=== PATIENT | female | born 1955 | race Caucasian/White ===

== ENCOUNTER 2016-06-25 09:27 | Day surgery (SDC) | payer MEDICARE ==
--- NOTE | 2016-06-23 15:34 | HP ---
DATE OF SURGERY: 06/25/2016 HISTORY OF PRESENT ILLNESS: The patient is a 61 year-old who has history of colon cancer status post resection in the past now in need of follow up colonoscopy. Colonoscopy requested per oncology. PAST MEDICAL HISTORY: Diabetes. She had colon cancer resected. She also had some liver metastasis resected in the past. PAST SURGICAL HISTORY: Partial colectomy in the past. She had 60% of her liver removed for metastasis in the past. She had left knee replacement in the past. Hysterectomy in the past. MEDICATIONS: ALLERGIES: SILK TAPE. FAMILY HISTORY: Heart disease, diabetes, cancer, hypertension. SOCIAL HISTORY: No smoking or alcohol abuse. REVIEW OF SYSTEMS: Ten systems reviewed. No chest pain or palpitations other systems negative or noncontributory as above and per admission assessment. The patient denies any bloody stools. She is tolerating diet okay. No chest pain or palpitations. PHYSICAL EXAMINATION: GENERAL: No acute distress. HEENT: Sclerae nonicteric. NECK: No JVD. CHEST: Equal excursion, nonlabored breathing. CVS: Regular rate and rhythm. ABDOMEN: Soft, nontender. No peritoneal signs. EXTREMITIES: No significant edema. NEURO: Alert, moving extremities symmetrically. No gross motor deficits noted. RECTAL: Deferred timed to endoscopy exam. IMPRESSION: History of colon cancer status post partial colectomy as well resection for liver metastasis in the past, now in need of follow up screening colonoscopy. I feel she is a candidate. Risks and benefits explained in detail including but not limited to bleeding or infection, risk of bowel injury or perforation possibly requiring open procedure, small risk of missed or nondiagnosis or incomplete exam possibly requiring barium enema, other studies or procedures, general risk of anesthesia or sedation, risk of bowel prep, postoperative nausea, vomiting or cramping but not limited to. She understands and agrees to the planned procedure and will proceed with outpatient follow up screening colonoscopy.
[~2016-06-25 09:27] MED LIST: DIPRIVAN 200 MG/20 ML IV ONE; Ephedrine Sulfate 50 MG/ML IJ ONE; Lactated Ringers 1,000 ML IV SCH; SUBLIMAZE 100 MCG/2 ML IV ONE; Versed 2 MG/2 ML Injection IV ONE
[2016-06-25] MEDS ORDERED: Lactated Ringers 1,000 ML IV ONE ×2 (09:41→11:47)
--- NOTE | 2016-06-25 13:07 | OP ---
SURGERY DATE: 06/25/16 SURGERY TIME: 1052 PREOPERATIVE DIAGNOSIS: 1. HISTORY OF COLON CANCER STATUS POST RESECTION. 2. HISTORY OF LIVER METASTASIS STATUS POST PARTIAL HEPATIC RESECTION. 3. NEED FOR FOLLOW-UP SCREENING COLONOSCOPY. POSTOPERATIVE DIAGNOSIS: 1. VERY POOR BOWEL PREP LIMITING THE EXAM. 2. DIVERTICULOSIS. 3. SMALL INTERNAL/EXTERNAL HEMORRHOIDS. 4. PATCHY AREA OF INFLAMMATION RECTUM VS PREP IRRITATION. PROCEDURE: 1. Colonoscopy to terminal ileum with cold biopsy rectal inflammation. SURGEON: Dr. Mason Rogers. ANESTHESIA: MAC. ESTIMATED BLOOD LOSS: Minimal. INDICATIONS: As noted above. Risks and benefits explained in detail, but not limited to. Consent obtained. DESCRIPTION OF PROCEDURE AND FINDINGS: The patient was taken to the OR. MAC anesthesia was introduced. Digital rectal exam revealed some internal/external hemorrhoids. Video colonoscope inserted and passed up through the poorly prepped colon up to the very tortuous sigmoid and descending colon. With external pressure, the scope was able to be passed down the transverse colon to the ileocolic anastomosis. The terminal ileum was grossly unremarkable and the connection was grossly unremarkable. There was no evidence of any recurrence of the anastomosis. Prep overall was very poor with liquidy, semi-solid, and solid stool limiting the exam for potentially small lesions. It was irrigated out as well as possible, but did limit the exam. The scope was slowly, carefully withdrawn. There were no signs of any large polyps, masses, or obstructing lesions. She did have some mild diverticulosis. She did have some small internal/external hemorrhoids. There was some patchy area of inflammation in the colon. Picture was taken. Cold biopsy was taken. The patient tolerated the procedure well. There were no immediate complications. Findings discussed with her sisters out in the waiting area.
[2016-06-25 14:11] VITALS: O2SAT 98
[2016-06-25 14:16] VITALS: BP 136/99; PULSE 95
== END 2016-06-25 12:35 | disposition home or self-care (01) ==
LOC: SDC 09:27
PROVIDERS: ATTEND Surgery
PROC: 0DBP8ZX Excision of Rectum, Via Natural or Artificial Opening Endoscopic, Diagnostic (ICD-10-PCS; principal; 2016-06-25)
DX: K57.90 Diverticulosis of intestine, part unspecified, without perforation or abscess without bleeding (principal); Z85.038 Personal history of other malignant neoplasm of large intestine; Z85.05 Personal history of malignant neoplasm of liver; K64.4 Residual hemorrhoidal skin tags; K64.8 Other hemorrhoids; Z90.49 Acquired absence of other specified parts of digestive tract; Z12.11 Encounter for screening for malignant neoplasm of colon; E11.9 Type 2 diabetes mellitus without complications
CPT/HCPCS: 00810; 36415; 82962; 88305; J1642; J2250; J2704; J3010

== ENCOUNTER 2016-10-27 20:28 | Emergency (ER) | payer MEDICARE, SELFPAY ==
--- NOTE | 2016-10-27 21:05 | ERPHSYRPT ---
- History of Present Illness Time Seen by Provider: 10/27/16 21:02 Historian: patient, family Exam Limitations: no limitations Patient Subjective Stated Complaint: PER PATIENT C/O INTERMITENT EPIGASTRIC PAIN STARTING AT 1200 TODAY Triage Nursing Assessment: AOX3, NO FEVER NOTED, SLIGHTLY HYPOTENSIVE PER PATIENT NORMAL BP 111 (teens) Physician History: 2 week hisotry of abd pain in pt who had colon resection for cancer in 2014 and last year a liver met resection for same; was OK until 2 weeks ago when pain recurred to this date worse tonight.no shortness of breath or resp symptoms; no CP, no dizziness , no vomiting but some nausea; Timing/Duration: day(s) Activities at Onset: none Quality: cramping, pressure, sharpness Abdominal Pain Onset Location: epigastric, generalized abdomen Severity of Pain-Max: moderate Severity of Pain-Current: moderate Modifying Factors: Improves With: movement Associated Symptoms: loss of appetite Previous symptoms: no prior history Allergies/Adverse Reactions: hydrocodone Adverse Reaction (Mild, Verified 08/28/16 13:07) Itching adhesive tape Adverse Reaction (Verified 08/28/16 13:07) Home Medications: Insulin Lispro [Humalog] 0 unit SQ UD PRN 10/13/13 [History] Oxybutynin Chloride Xl 5 mg [Ditropan XL 5 MG] 5 mg PO BID 10/13/13 [ History] Gabapentin 300 mg PO BID 10/25/14 [History] Venlafaxine HCl ER 75 mg [Effexor XR 75 MG] 75 mg PO DAILY 10/25/14 [ History] Insulin Glargine [Lantus Insulin] 60 unit SQ AMINSULIN 06/16/15 [History] Atorvastatin Calcium [Lipitor 40Mg] 40 mg PO DAILY 10/06/15 [History] Ascorbic Acid/Bioflavonoids [Vit C-Bioflavonoids Tab SA] 1 tablet PO DAILY 11/23 [History] L.acidoph & Paracasei,B.lactis [Probiotic] 1 tablet PO DAILY 11/24/15 [History] Fluoxetine HCl 10 mg [Prozac 10 mg] 10 mg PO DAILY 04/27/16 [History] Multivitamin [Multivitamins] 1 each PO DAILY 04/27/16 [History] Lisinopril 10 mg [Zestril 10 MG] 20 mg PO DAILY 05/28/16 [History] Cinnamon Bark [Cinnamon] 500 mg PO BID 06/21/16 [History] Docusate Sodium 100 mg [Colace 100 MG] 100 mg PO DAILY 06/21/16 [History] Iron Polysaccharide Complex [Ferrex 150] 150 mg PO BID 06/21/16 [History] Hx Tetanus, Diphtheria Vaccination/Date Given: Yes Hx Influenza Vaccination/Date Given: No Hx Pneumococcal Vaccination/Date Given: Yes - Review of Systems Constitutional: No Fever, No Chills Eyes: No Symptoms Ears, Nose, & Throat: No Symptoms Respiratory: No Cough, No Dyspnea Cardiac: No Chest Pain, No Edema, No Syncope Abdominal/Gastrointestinal: Abdominal Pain, Nausea, Appetite Changes, No Vomiting, No Diarrhea Genitourinary Symptoms: No Dysuria Musculoskeletal: No Back Pain, No Neck Pain Skin: No Rash Neurological: No Dizziness, No Focal Weakness, No Sensory Changes Psychological: No Symptoms Endocrine: No Symptoms All Other Systems: Reviewed and Negative - Past Medical History Pertinent Past Medical History: Yes Neurological History: No Pertinent History ENT History: No Pertinent History Cardiac History: Hypertension Respiratory History: Pulmonary Embolism Endocrine Medical History: Diabetes Type II Musculoskeletal History: Arthritis GI Medical History: Colorectal Cancer, Liver Cancer, Other History: No Pertinent History Psycho-Social History: No Pertinent History Female Reproductive Disorders: No Pertinent History Other Medical History: HX OF MRSA. COLON CANCER,chemo tx. liver cancer-- PARTIAL HEPATECTOMY 60 % - Past Surgical History Past Surgical History: Yes Neuro Surgical History: No Pertinent History Cardiac: No Pertinent History Respiratory: Other Gastrointestinal: Colon Resection Genitourinary: No Pertinent History Musculoskeletal: Orthopedic Surgery Female Surgical History: Hysterectomy Other Surgical History: bone removed d/t infection. antibiotic beads left lower leg. PORT PLACED. left knee replaced. PARTIAL HEPATECTOMY 60 % REMOVED 09/25/2015, cyst removed from her back - Social History Smoking Status: Never smoker Exposure to second hand smoke: No Drug Use: none Patient Lives Alone: No - Nursing Vital Signs Nursing Vital Signs: Initial Vital Signs Temperature 97.7 F Temperature Source Oral Pulse Rate 71 Respiratory Rate 16 Blood Pressure [Right Arm] 109/55 Pain Intensity 8 - Physical Exam General Appearance: no apparent distress, alert Eye Exam: PERRL/EOMI, eyes nml inspection Ears, Nose, Throat Exam: normal ENT inspection, pharynx normal, moist mucous membranes Neck Exam: normal inspection, non-tender, supple, full range of motion Respiratory Exam: normal breath sounds, lungs clear, No respiratory distress Cardiovascular Exam: regular rate/rhythm, normal heart sounds Gastrointestinal/Abdomen Exam: soft, tenderness, No mass Pelvic Exam: deferred Rectal Exam: deferred Back Exam: normal inspection, normal range of motion, No CVA tenderness, No vertebral tenderness Extremity Exam: normal inspection, normal range of motion, pelvis stable Neurologic Exam: alert, oriented x 3, cooperative, normal mood/affect, nml cerebellar function, sensation nml, No motor deficits Skin Exam: normal color, warm, dry SpO2: 98 Oxygen Delivery: Room Air - Course Nursing assessment & vital signs reviewed: Yes EKG Interpreted by Me: Sinus Rhythm, NORMAL AXIS, NORMAL INTERVALS, Non- specific ST Changes - CT Exams Abdomen/Pelvis CT Interpretation: Tele-radiologist Report, Other (some increased stranding and slightly more free fluid from last month ; otw no change.) Ordered Tests: Active Orders 24 hr Category Date Time Status Clean Catch Urine Specimen STAT Care 10/27/16 21:05 Active EKG-ER Only STAT Care 10/27/16 21:05 Active IV Insertion STAT Care 10/27/16 21:05 Active NPO (ED) STAT Care 10/27/16 21:05 Active ABDOMEN AND PELVIS W/0 CONTRAS [CT] Stat Exams 10/27/16 21:06 Taken AMYLASE Stat Lab 10/27/16 21:27 Completed CBC W DIFF Stat Lab 10/27/16 21:27 Completed CMP Stat Lab 10/27/16 21:27 Completed LIPASE Stat Lab 10/27/16 21:27 Completed Lactic Acid Stat Lab 10/27/16 21:25 Completed Occult Blood,Stool Other Stat Lab 10/27/16 22:37 Completed TROPONIN Stat Lab 10/27/16 21:27 Completed UA W/ MICROSCOPIC Stat Lab 10/27/16 22:37 Completed Medication Summary Generic Name Dose Route Start Last Admin Trade Name Freq PRN Reason Stop Dose Admin Sodium Chloride 1,000 mls @ 100 mls/hr 10/27/16 21:15 10/27/16 21:25 Sodium Chloride 0.9% 1000 Ml IV 11/26/16 21:14 100 mls/hr .Q10H DIONISIO Administration Lab/Rad Data: Laboratory Result Diagrams 10/27/16 21:27 10/27/16 21:27 Laboratory Results 10/27/16 10/27/16 10/27/16 Range/Units 22:37 22:37 21:27 WBC 3.8 L (4.0-10.5) K/mm3 RBC 4.52 (4.1-5.4) M/mm3 Hgb 12.8 (12.0-16.0) gm/dl Hct 37.8 (35-47) % MCV 83.6 (78-100) fl MCH 28.3 (26-32) pg MCHC 33.9 (32-36) g/dl RDW 13.9 (11.5-14.0) % Plt Count 60 L (150-450) K/mm3 MPV 9.0 (6-9.5) fl Gran % 67.9 H (36.0-66.0) % Lymphocytes % 19.8 L (24.0-44.0) % Monocytes % 9.9 (0.0-12.0) % Eosinophils % 2.1 (0.00-5.0) % Basophils % 0.3 (0.0-0.4) % Basophils # 0.01 (0-0.4) Sodium (136-145) mEq/L Potassium (3.5-5.1) mEq/L Chloride (98-107) mEq/L Carbon Dioxide (21-32) mEq/L Anion Gap (5-15) MEQ/L BUN (9-20) mg/dL Creatinine (0.55-1.30) mg/dl Estimated GFR ML/MIN Glucose (70-110) MG/DL Lactic Acid (0.4-2.0) Calcium (8.5-10.1) mg/dL Total Bilirubin (0.2-1.0) mg/dL AST (15-37) U/L ALT (12-78) U/L Alkaline Phosphatase (46-116) U/L Troponin I (0.000-0.056) ng/ml Serum Total Protein (6.4-8.2) gm/dL Albumin (3.4-5.0) g/dL Amylase (25-115) U/L Lipase (73-393) U/L Ur Collection Type CLEAN CATCH Urine Color YELLOW (YELLOW) Urine Appearance CLEAR (CLEAR) Urine pH 5.5 (5-6) Ur Specific [place] 1.015 (1.005-1.025) Urine Protein NEGATIVE (Negative) Urine Glucose (UA) NEGATIVE (NEGATIVE) mg/dL Urine Ketones NEGATIVE (NEGATIVE) Urine Nitrite NEGATIVE (NEGATIVE) Urine Bilirubin NEGATIVE (NEGATIVE) Urine Urobilinogen 0.2 (0-1) mg/dL Urine WBC (Auto) TRACE (NEGATIVE) Urine RBC (Auto) TRACE-INTACT (0-5) Wilder/ul Urine Microscopic RBC 2-5 (0-2) /HPF Urine Microscopic WBC 2-5 (0-5) /HPF Ur Epithelial Cells MODERATE (FEW) /HPF Urine Bacteria FEW (NEGATIVE) /HPF Urine Mucus SLIGHT (NEGATIVE) /HPF Stool Occult Blood NEGATIVE (Negative) Specimen Received 10/27/16222910/27/16 10/27/16 Range/Units 21:27 21:25 WBC (4.0-10.5) K/mm3 RBC (4.1-5.4) M/mm3 Hgb (12.0-16.0) gm/dl Hct (35-47) % MCV (78-100) fl MCH (26-32) pg MCHC (32-36) g/dl RDW (11.5-14.0) % Plt Count (150-450) K/mm3 MPV (6-9.5) fl Gran % (36.0-66.0) % Lymphocytes % (24.0-44.0) % Monocytes % (0.0-12.0) % Eosinophils % (0.00-5.0) % Basophils % (0.0-0.4) % Basophils # (0-0.4) Sodium 138 (136-145) mEq/L Potassium 4.0 (3.5-5.1) mEq/L Chloride 105 (98-107) mEq/L Carbon Dioxide 26.8 (21-32) mEq/L Anion Gap 10.4 (5-15) MEQ/L BUN 15 (9-20) mg/dL Creatinine 0.78 (0.55-1.30) mg/dl Estimated GFR > 60 ML/MIN Glucose 175 H (70-110) MG/DL Lactic Acid 1.2 (0.4-2.0) Calcium 9.2 (8.5-10.1) mg/dL Total Bilirubin 0.7 (0.2-1.0) mg/dL AST 29 (15-37) U/L ALT 31 (12-78) U/L Alkaline Phosphatase 106 (46-116) U/L Troponin I < 0.017 (0.000-0.056) ng/ml Serum Total Protein 7.2 (6.4-8.2) gm/dL Albumin 3.4 (3.4-5.0) g/dL Amylase 25 (25-115) U/L Lipase 134 (73-393) U/L Ur Collection Type Urine Color (YELLOW) Urine Appearance (CLEAR) Urine pH (5-6) Ur Specific [place] (1.005-1.025) Urine Protein (Negative) Urine Glucose (UA) (NEGATIVE) mg/dL Urine Ketones (NEGATIVE) Urine Nitrite (NEGATIVE) Urine Bilirubin (NEGATIVE) Urine Urobilinogen (0-1) mg/dL Urine WBC (Auto) (NEGATIVE) Urine RBC (Auto) (0-5) Wilder/ul Urine Microscopic RBC (0-2) /HPF Urine Microscopic WBC (0-5) /HPF Ur Epithelial Cells (FEW) /HPF Urine Bacteria (NEGATIVE) /HPF Urine Mucus (NEGATIVE) /HPF Stool Occult Blood (Negative) Specimen Received - Progress Progress: improved, re-examined Progress Note: 10/27/16 23:39 pt is feeling better now - discussed findings that are not specific , and that undetected pathology could be evolving; pt prefers DC to admission or furhter w/ u in ER at this time and will return if symptoms recur; would like something fo r nausea and will see her treating drs saturday for further w/u ; 10/27/16 23:41 pt has capacity to make this choice 10/27/16 23:48 BP increased to 100s, with normal HR. Counseled pt/family regarding: lab results, diagnosis, need for follow-up, rad results - Departure Time of Disposition: 23:42 Departure Disposition: Home Clinical Impression: Colon adenocarcinoma, Abdominal pain, right lung nodule, without symptoms Condition: Good Critical Care Time: No Instructions: Abdominal Pain-Adult Additional Instructions: We have not identified a precise cause for your abdominal pain, but undetected problems could be evolving; THe CT findings may represent early problems. It is important therefore for you to see your for further evaluation. THere is also a lung nodule on right from in September to followup; return meantime if not improving, vomiting fever, or other concerns; Prescriptions: Ondansetron [Ondansetron Odt] 4 mg PO Q6H PRN PRN #7 tab.rapdis PRN Reason: Nausea
[2016-10-27] MEDS ORDERED: Sodium Chloride 0.9% 1000 ML 1,000 ML IV SCH (21:15)
[2016-10-27] MEDS ORDERED: Sodium Chloride 0.9% 1000 ML 1,000 ML ONE (21:24)
[2016-10-27 21:35] LABS: BASOPHIL % 0.3 % (0.0-0.4); Eosinophil % 2.1 % (0.00-5.0); Granulocytes % 67.9 % (36.0-66.0); Lymphocytes % 19.8 % (24.0-44.0); Mean Cell Volume 83.6 fl (78-100); Mean Corpuscular Hemoglobin 28.3 pg (26-32); Monocytes % 9.9 % (0.0-12.0); Platelet Count 60 K/mm3 (150-450); Red Blood Count 4.52 M/mm3 (4.1-5.4); Red Cell Distribution Width 13.9 % (11.5-14.0); White Blood Count 3.8 K/mm3 (4.0-10.5)
[2016-10-27 21:52] LABS: ALBUMIN 3.4 g/dL (3.4-5.0); ALKALINE PHOSPHATASE 106 U/L (46-116); ANION GAP 10.4 MEQ/L (5-15); BILIRUBIN,TOTAL 0.7 mg/dL (0.2-1.0); BLOOD UREA NITROGEN 15 mg/dL (9-20); CHLORIDE 105 mEq/L (98-107); Carbon Dioxide 26.8 mEq/L (21-32); Glucose 175 MG/DL (70-110); LIPASE 134 U/L (73-393); SGOT/AST 29 U/L (15-37); SGPT/ALT 31 U/L (12-78); SODIUM 138 mEq/L (136-145); Total Protein 7.2 gm/dL (6.4-8.2)
[2016-10-27 21:53] LABS: TROPONIN < 0.017 ng/ml (0.000-0.056)
[2016-10-27 23:05] LABS: Bacteria FEW /HPF (NEGATIVE); COMPLETE URINE MICROSCOPIC? YES; Collection Type CLEAN CATCH; Epithelial Cells MODERATE /HPF (FEW); Mucus SLIGHT /HPF (NEGATIVE); Ph 5.5 (5-6)
[2016-10-28 00:09] VITALS: BP 106/64; PULSE 74; O2SAT 94
--- NOTE | 2016-10-28 09:32 | XRAY ---
Indication: Upper abdominal pain. History colon cancer. Multiple contiguous axial images obtained through the abdomen and pelvis without contrast as ordered. Comparison: May 02, 2016. Lung bases demonstrate 2 stable noncalcified micronodules in the right lower lobe. No infiltrates, consolidation, or effusion. Heart is not enlarged. Again postsurgical changes in the right upper quadrant related to partial resection of the right lobe liver and cholecystectomy with continued diminished fluid. Mild mesenteric stranding/congestion with minimally increasing small pelvic free fluid. No walled off fluid collection or free air. Uterus again surgically absent. Again splenomegaly today measuring 15.7 cm in greatest axial dimension. Noncontrasted stomach and bowel loops appear nonobstructed. There is increasing moderate diffuse colonic fecal debris. Stable umbilical hernia again with nonobstructing nonincarcerated small bowel herniation. Also stable left renal cyst. Previous lower anterior abdominal wall subcutaneous masslike opacities continue to appear smaller. Stable mild aortoiliac calcifications without AAA. Remaining liver, pancreas, spleen, adrenal glands, kidneys, ureters, and bladder appear unremarkable for noncontrast exam. Osseous structures again intact with degenerative changes through the spine/both hips and scoliosis. Impression: 1. Increasing fecal stasis without obstruction. 2. Mesenteric stranding/congestion with increasing small pelvic free fluid. 3. Again splenomegaly. 4. Stable right upper quadrant postsurgical changes related to partial resection of the liver and cholecystectomy. 5. Stable umbilical hernia without incarceration/obstruction and left renal cyst. 6. Stable right lower lobe indeterminate pulmonary micronodules. CT DI 28.13
== END 2016-10-28 00:04 | disposition home or self-care (01) ==
LOC: ED 20:28
DX: C18.9 Malignant neoplasm of colon, unspecified (principal); R10.9 Unspecified abdominal pain; R91.1 Solitary pulmonary nodule; R10.13 Epigastric pain; Z79.899 Other long term (current) drug therapy; R11.0 Nausea; I10 Essential (primary) hypertension; E11.9 Type 2 diabetes mellitus without complications; Z86.711 Personal history of pulmonary embolism
CPT/HCPCS: 36000; 36415; 74176; 80053; 81000; 82150; 82272; 83605; 83690; 84484; 85025; 93005; 96360; 96361; 99284; J1642

== ENCOUNTER 2016-11-28 11:43 | Observation (INO) | payer MEDICARE, SELFPAY ==
[2016-11-28] MEDS ORDERED: Zofran 4 MG/2 ML VIAL IV PRN (11:55)
[2016-11-28] MEDS ORDERED: MORPHINE SULFATE 4 MG INJ IV PRN (11:56)
[2016-11-28] MEDS ORDERED: Sodium Chloride 0.9% 500 ML 500 ML IV SCH (12:00)
[2016-11-28] MEDS: Sodium Chloride 0.9% 1000 ML 1,000 ML IV SCH (12:33)
[2016-11-28 12:49] LABS: Mean Cell Volume 83.4 fl (78-100); Mean Corpuscular Hemoglobin 29.1 pg (26-32); Mean Platelet Volume 9.6 fl (6-9.5); Platelet Count 58 K/mm3 (150-450); Red Blood Count 5.01 M/mm3 (4.1-5.4); Red Cell Distribution Width 14.8 % (11.5-14.0); White Blood Count 4.1 K/mm3 (4.0-10.5)
[2016-11-28] MEDS: Zestril 20 MG PO SCH (13:09)
[2016-11-28 13:20] LABS: ALBUMIN 3.6 g/dL (3.4-5.0); ALKALINE PHOSPHATASE 115 U/L (46-116); BLOOD UREA NITROGEN 15 mg/dL (9-20); CHLORIDE 102 mEq/L (98-107); Carbon Dioxide 23.1 mEq/L (21-32); Glucose 157 MG/DL (70-110); Potassium 3.8 mEq/L (3.5-5.1); SGOT/AST 72 U/L (15-37); SGPT/ALT 47 U/L (12-78); SODIUM 135 mEq/L (136-145); Total Protein 7.9 gm/dL (6.4-8.2)
[2016-11-28 14:53] LABS: Eosinophil 1 % (0.00-3.0); Total Cells Counted 100
[2016-11-28 14:54] LABS: Platelet Estimate DECREASED (NORMAL)
--- NOTE | 2016-11-28 16:16 | XRAY ---
Exam: CT of the abdomen and pelvis with IV contrast from 11/28/2016. CTDI: 23.68 Comparison: CT of the abdomen and pelvis without IV contrast from 10/27/[address] of the abdomen and pelvis with IV contrast from 05/02/2016 and 07/08/2015. Indication: Diarrhea, dehydration, history of colon cancer. The patient has a history of prior colon surgery as well as cholecystectomy and hysterectomy. Technique: Post-IV contrast axial images were obtained through the abdomen and pelvis during automated injection of 80 cc of Isovue 370 IV contrast material. Oral contrast was given as well. Reconstructed coronal and sagittal images were created and reviewed. Findings: The lung bases reveal a stable 5.5 mm nodule on axial image #1 at the posterior right lung base as compared to a CT of the chest from 09/17/2016. Continued monitoring is warranted. The remainder of the visualized lung bases appears clear. The patient is status post partial posterior right lobe liver resection. Numerous surgical clips are seen. The remainder of the liver appears unremarkable. The gallbladder is surgically absent. The spleen is enlarged measuring 18.5 cm in greatest diameter on sagittal image #133. No focal splenic mass is seen. This appears similar to recent studies. The pancreas and left adrenal gland appear unremarkable. The right adrenal gland is not well seen. Both kidneys function and reveal no hydronephrosis or definite renal calculi. Within the posterior aspect of the upper pole of the left kidney I see a 2.7 cm x 2.5 cm lesion which measures an average of +59 Hounsfield units on the immediate post IV contrast study and +61 Hounsfield units on the delayed images. If this represents a cyst, it contains cellular debris or proteinaceous material within it. This appears of unchanged size. Correlate clinically as to whether further investigation with a renal ultrasound with attention to the posterior aspect of the upper pole of the left kidney is needed. The patient is apparently partial right-sided colon resection. Surgical suture material is seen at the anastomosis. I see no adjacent mass or bowel wall thickening. There does appear to be some scattered fluid within distal small bowel and colon which can be seen with a diarrheal state. In addition, there is a nonobstructing and nonincarcerated umbilical hernia containing some nondilated opacified small bowel within its representing no change. No other ventral abdominal wall hernia is seen. There is no free intraperitoneal air. Some atherosclerotic vascular calcification is seen within the abdominal aorta and iliac arteries. No abdominal aortic aneurysm or abnormal retroperitoneal lymphadenopathy is seen. The pelvis reveals a surgically absent uterus. The urinary bladder is almost empty. No enlarged pelvic lymph nodes or free fluid within the pelvis is seen. No acute fracture or suspicious skeletal lesions are seen. The skeleton reveals a mild mid lumbar rotary levoscoliosis. Mild to moderate osteoarthritis of the right hip and minimal osteoarthritic change of the left hip are seen. Mild degenerative disc disease is seen at L2-L3. Prominent anterior lateral vertebral endplate spurs are seen throughout the visualized thoracolumbar spine. Impression: 1. I note scattered fluid density throughout the colonic bowel lumen without concomitant bowel wall thickening. This is consistent with a diarrheal state. I see no findings to suggest acute bowel obstruction. There is no free air. 2. The patient is status post partial right colon resection. The anastomotic site appears unremarkable. I also see evidence of prior partial posterior right hepatic lobe resection. No focal liver lesion is seen. 3. There is a stable 2.7 cm x 2.5 cm lesion at the posterior aspect of the upper pole of the left kidney. This has a somewhat high attenuation value to represent a simple cyst, although it could represent a cyst with some proteinaceous material or blood products within it. It has not changed in size. Consider the need for a focused renal ultrasound with attention to this site. 4. There is moderate splenomegaly representing no significant change. 5. Nonobstructing and nonincarcerated umbilical hernia containing nondilated opacified small bowel loops. This is unchanged. No free air or free fluid is seen. 6. There is a stable 5.5 mm soft tissue lung nodule at the posterior aspect of the right lower lobe on axial image #1 which is unchanged. Continued monitoring is recommended. 7. Both the gallbladder and uterus are surgically absent. 8. Skeletal findings, as discussed above.
[2016-11-28] MEDS: NovoLOG Insulin SQ PRN (17:09)
[2016-11-28] MEDS: ZOCOR 20MG PO SCH (21:57)
[2016-11-28] MEDS: Ditropan XL 5 MG PO SCH (21:57)
[2016-11-28] MEDS: NEURONTIN 300 MG PO SCH (21:57)
[2016-11-29] MEDS ORDERED: xanAX 0.5 MG PO PRN (07:37)
--- NOTE | 2016-11-29 07:40 | PCM.NOTE ---
Date and Time: 11/29/16 0738 Subjective Assessment: patient still with multiple loose stools overnight, having low abdominal pain/ cramping but not severe. tolerating po intake Objective Exam General Appearance: no apparent distress, alert, obese Respiratory Exam: normal breath sounds, lungs clear, No respiratory distress Cardiovascular Exam: regular rate/rhythm, normal heart sounds Gastrointestinal/Abdomen Exam: tenderness, No guarding, No rebound Extremity Exam: normal inspection, normal range of motion OBJECTIVE DATA Vital Signs: Vital Signs - 24 hr Temp Pulse Resp BP Pulse Ox 11/29/16 07:24 98.6 F 86 18 165/67 97 11/29/16 03:56 98.1 F 82 19 146/67 97 11/28/16 23:54 97.8 F 81 18 156/70 99 11/28/16 19:55 97.9 F 83 19 124/58 97 11/28/16 16:00 98.1 F 103 H 20 186/80 96 11/28/16 12:13 98.9 F 94 H 20 145/70 97 Pain Assessment - Last Documented Pain Intensity 0 Pain Scale Used 0-10 Pain Scale Intake and Output: Intake & Output 11/26/16 11/27/16 11/28/16 11/29/16 11:59 11:59 11:59 11:59 Intake Total 2083 Output Total 300 Balance 1783 Weight 114.124 kg Lab Results: Accuchecks Date 11/28/16 Date 11/28/16 Time 22:00 Time 17:09 Accucheck Value: 183 Accucheck Value: 201 Lab Results-Last 24 Hours 11/28/16 11/28/16 11/28/16 Range/Units 12:46 12:46 14:30 WBC 4.1 (4.0-10.5) K/mm3 RBC 5.01 (4.1-5.4) M/mm3 Hgb 14.6 (12.0-16.0) gm/dl Hct 41.8 (35-47) % MCV 83.4 (78-100) fl MCH 29.1 (26-32) pg MCHC 34.9 (32-36) g/dl RDW 14.8 H (11.5-14.0) % Plt Count 58 L (150-450) K/mm3 MPV 9.6 H (6-9.5) fl Segmented Neutrophils 79 H (36.0-66.0) % Lymphocytes (Manual) 10 L (24-44) % Monocytes (Manual) 10 (0.0-12.0) % Eosinophils (Manual) 1 (0.00-3.0) % Differential Comment NORMAL Platelet Estimate DECREASED (NORMAL) Sodium 135 L (136-145) mEq/L Potassium 3.8 (3.5-5.1) mEq/L Chloride 102 (98-107) mEq/L Carbon Dioxide 23.1 (21-32) mEq/L Anion Gap 14.0 (5-15) MEQ/L BUN 15 (9-20) mg/dL Creatinine 0.82 (0.55-1.30) mg/dl Estimated GFR > 60 ML/MIN Glucose 157 H (70-110) MG/DL Calcium 9.3 (8.5-10.1) mg/dL Total Bilirubin 1.30 H (0.2-1.0) mg/dL AST 72 H (15-37) U/L ALT 47 (12-78) U/L Alkaline Phosphatase 115 (46-116) U/L Serum Total Protein 7.9 (6.4-8.2) gm/dL Albumin 3.6 (3.4-5.0) g/dL Prealbumin 14.3 L (18.0-35.7) mg/dL TSH 3rd Generation 3.794 H (0.358-3.740) mIU/L Stl C. diff Tox B Gene NEGATIVE (NEGATIVE) C.difficile [id number] PRESUMPTIVE NEGATIVE (NEGATIVE) Radiology Exams: Radiology Procedures Category Date Time Status ABDOMEN AND PELVIS W CONTRAST [CT] Routine Exams 11/28/16 Completed Assessment/Plan (1) Diarrhea Current Visit: No Status: Acute Assessment & Plan: add po levaquin for possible colitis with tenderness, no obvious etiology on ct scan Code(s): R19.7 - DIARRHEA, UNSPECIFIED (2) Dehydration Current Visit: No Status: Acute Assessment & Plan: rehydrating with IV fluids Code(s): E86.0 - DEHYDRATION
[2016-11-29] MEDS: Effexor XR 75 MG PO SCH (09:26)
[2016-11-29] MEDS: Ditropan XL 5 MG PO SCH ×2 (09:26→21:36)
[2016-11-29] MEDS: Zestril 20 MG PO SCH (09:27)
[2016-11-29] MEDS: Levofloxacin 500 MG Tablet PO SCH (09:27)
[2016-11-29] MEDS: NEURONTIN 300 MG PO SCH ×2 (09:27→21:36)
[2016-11-29] MEDS: PROZAC 10 MG PO SCH (09:27)
[2016-11-29] MEDS: Sodium Chloride 0.9% 1000 ML 1,000 ML IV SCH ×2 (09:34→19:23)
[2016-11-29] MEDS ORDERED: LIPITOR 40MG PO SCH (10:00)
[2016-11-29] MEDS ORDERED: PREVNAR 13 SYRINGE IM ONE (10:00)
[2016-11-29] MEDS: NovoLOG Insulin SQ PRN (11:37)
[2016-11-29 17:06] LABS: Giardia Antigen EIA Negative (Negative)
[2016-11-29] MEDS: ZOCOR 20MG PO SCH (21:36)
[2016-11-30] MEDS: Sodium Chloride 0.9% 1000 ML 1,000 ML IV SCH ×2 (05:16→08:13)
[2016-11-30 05:45] LABS: Mean Cell Volume 84.9 fl (78-100); Mean Platelet Volume 9.5 fl (6-9.5); Platelet Count 49 K/mm3 (150-450); Red Blood Count 4.03 M/mm3 (4.1-5.4); Red Cell Distribution Width 14.5 % (11.5-14.0); White Blood Count 2.4 K/mm3 (4.0-10.5)
[2016-11-30 05:58] LABS: Mean Corpuscular Hemoglobin 28.7 pg (26-32)
[2016-11-30 06:17] LABS: ALBUMIN 2.6 g/dL (3.4-5.0); ALKALINE PHOSPHATASE 75 U/L (46-116); ANION GAP 12.2 MEQ/L (5-15); BLOOD UREA NITROGEN 11 mg/dL (9-20); CHLORIDE 109 mEq/L (98-107); Carbon Dioxide 23.8 mEq/L (21-32); Glucose 207 MG/DL (70-110); Potassium 3.8 mEq/L (3.5-5.1); SGOT/AST 37 U/L (15-37); SGPT/ALT 32 U/L (12-78); SODIUM 141 mEq/L (136-145); Total Protein 6.1 gm/dL (6.4-8.2)
[2016-11-30 07:45] VITALS: BP 148/68; PULSE 74; O2SAT 96
--- NOTE | 2016-11-30 07:50 | PCM.DS ---
Discharge Summary Date of Admission: 11/28/16 11:43 Admitting Physician: PEARL RANGEL Primary Care Provider: PEARL RANGEL Allergies Allergies hydrocodone Adverse Reaction (Mild, Verified 11/28/16 12:53) Itching adhesive tape Adverse Reaction (Verified 11/28/16 12:53) Hospital Summary - Hospital Course Hospital Course: patient was admitted with diarrhea and dehydration, hx of right partial colon resection for colon cancer. ct scan showed nothing acute, she was hydrated and diarrhea has resolved. she is tolerating a regular diet with no complaints - Vitals & Intake/Output Vital Signs: Vital Signs Temperature 97.8 F 11/30/16 07:43 Pulse Rate 74 11/30/16 07:43 Respiratory Rate 18 11/30/16 07:43 Blood Pressure 148/68 11/30/16 07:43 O2 Sat by Pulse Oximetry 96 11/30/16 07:43 Intake & Output: Intake & Output 11/27/16 11/28/16 11/29/16 11/30/16 11:59 11:59 11:59 11:59 Intake Total 2323 4189 Output Total 300 Balance 2022 4189 Weight 114.124 kg 120.746 kg - Lab Result Diagrams: 11/30/16 05:25 11/30/16 05:25 Lab Results-Last 24 Hrs: Accuchecks Date 11/30/16 Date 11/29/16 Date 11/29/16 Date 11/29/16 Time 07:34 Time 22:00 Time 16:30 Time 11:37 Accucheck Value: 187 Accucheck Value: 188 Accucheck Value: 179 Accucheck Value: 302 Lab Results-Last 24 Hours 11/28/16 11/30/16 11/30/16 Range/Units 14:30 05:25 05:25 WBC 2.4 L (4.0-10.5) K/mm3 RBC 4.03 L (4.1-5.4) M/mm3 Hgb 11.6 L (12.0-16.0) gm/dl Hct 34.2 L (35-47) % MCV 84.9 (78-100) fl MCH 28.7 (26-32) pg MCHC 33.9 (32-36) g/dl RDW 14.5 H (11.5-14.0) % Plt Count 49 L (150-450) K/mm3 MPV 9.5 (6-9.5) fl Sodium 141 (136-145) mEq/L Potassium 3.8 (3.5-5.1) mEq/L Chloride 109 H (98-107) mEq/L Carbon Dioxide 23.8 (21-32) mEq/L Anion Gap 12.2 (5-15) MEQ/L BUN 11 (9-20) mg/dL Creatinine 0.64 (0.55-1.30) mg/dl Estimated GFR > 60 ML/MIN Glucose 207 H (70-110) MG/DL Calcium 8.3 L (8.5-10.1) mg/dL Total Bilirubin 0.50 (0.2-1.0) mg/dL AST 37 (15-37) U/L ALT 32 (12-78) U/L Alkaline Phosphatase 75 (46-116) U/L Serum Total Protein 6.1 L (6.4-8.2) gm/dL Albumin 2.6 L (3.4-5.0) g/dL Cryptosporidium Ag Negative (Negative) Giardia Antigen Negative (Negative) O & P Source Feces Slides for Path Review Micro Results-Entire Visit: Accuchecks Date 11/30/16 Date 11/29/16 Date 11/29/16 Date 11/29/16 Time 07:34 Time 22:00 Time 16:30 Time 11:37 Accucheck Value: 187 Accucheck Value: 188 Accucheck Value: 179 Accucheck Value: 302 Discharge Exam General Appearance: no apparent distress, alert Skin Exam: normal color, warm, dry Respiratory Exam: normal breath sounds, lungs clear, No respiratory distress Cardiovascular Exam: regular rate/rhythm, normal heart sounds Gastrointestinal/Abdomen Exam: soft, No tenderness, No mass Final Diagnosis/Problem List - Final Discharge Diagnosis/Problem (1) Diarrhea Current Visit: No Status: Acute (2) Dehydration Current Visit: No Status: Acute - Discharge Disposition: Home, Self-Care Condition: Stable Prescriptions: New Alprazolam [Xanax] 0.5 mg PO DAILY #30 tablet Continue Oxybutynin Chloride Xl 5 mg [Ditropan XL 5 MG] 5 mg PO BID Venlafaxine HCl ER 75 mg [Effexor XR 75 MG] 75 mg PO DAILY Gabapentin 300 mg PO BID Insulin Glargine [Lantus Insulin] 52 unit SQ AMINSULIN Atorvastatin Calcium [Lipitor 40Mg] 40 mg PO DAILY L.acidoph & Paracasei,B.lactis [Probiotic] 1 tablet PO DAILY Multivitamin [Multivitamins] 1 each PO DAILY Fluoxetine HCl 10 mg [Prozac 10 mg] 10 mg PO DAILY Lisinopril 10 mg [Zestril 10 MG] 20 mg PO DAILY Iron Polysaccharide Complex [Ferrex 150] 150 mg PO BID Docusate Sodium 100 mg [Colace 100 MG] 100 mg PO DAILY Cinnamon Bark [Cinnamon] 500 mg PO BID Ascorbate Calcium [Vitamin C] 500 mg PO DAILY Changed Insulin Lispro [Humalog] 1 unit SQ UD PRN #2 vial PRN Reason: sliding scale Follow up with: PEARL RANGEL MD [Primary Care Provider] - 1 Week Forms: Patient Portal Information
[2016-11-30] MEDS: Ditropan XL 5 MG PO SCH (08:14)
[2016-11-30] MEDS: Zestril 20 MG PO SCH (08:14)
[2016-11-30] MEDS: Effexor XR 75 MG PO SCH (08:14)
[2016-11-30] MEDS: PROZAC 10 MG PO SCH (08:14)
[2016-11-30] MEDS: NEURONTIN 300 MG PO SCH (08:14)
[2016-11-30] MEDS: Levofloxacin 500 MG Tablet PO SCH (08:14)
== END 2016-11-30 10:15 | disposition home or self-care (01) ==
LOC: MED SURG 11:43
PROVIDERS: ADMIT Family Medicine; ATTEND Family Medicine
DX: R19.7 Diarrhea, unspecified (principal); E86.0 Dehydration; Z79.899 Other long term (current) drug therapy
CPT/HCPCS: 36415; 74177; 80053; 82962; 84134; 84443; 85025; 85027; 87045; 87046; 87177; 87209; 87335; 87493; 90670; G0009; G0378; J1642; J2405; A9270-GY

== ENCOUNTER 2017-07-22 16:05 | Observation (INO) | payer MEDICARE ==
--- NOTE | 2017-07-22 17:00 | ERPHSYRPT ---
- History of Present Illness Source: patient, family Exam Limitations: no limitations Patient Subjective Stated Complaint: pt co abd pain and diarrhea x2 days; abd pain has been intermittentx1 week; family states pt has been sleeping more than normal (approx 20 hours per day); pt also co sore throat x1 month. Triage Nursing Assessment: pt assisted to room per w/c; skin p,w,d; pt able to ambulate from chair to bed with minimal assist x1; no obvious distress noted; mild tenderness with palpation of mid to lower abdomen, non radiating; pt denies any n/v. Timing/Duration: week(s) (1), intermittent Severity: moderate Modifying Factors: Improves With: nothing Associated Symptoms: nausea, abdominal pain, weakness Hx Tetanus, Diphtheria Vaccination/Date Given: Yes Hx Influenza Vaccination/Date Given: No Hx Pneumococcal Vaccination/Date Given: Yes (2016) Immunizations Up to Date: No <ANTWAN IRAHETA - Last Filed: 07/22/17 19:20> <ANTWAN MANCIA - Last Filed: 07/22/17 22:20> - History of Present Illness Time Seen by Provider: 07/22/17 16:50 Physician History: The patient is a 62-year-old female with family with multiple complaints. She' s had intermittent abdominal pain for one week. She's been sleeping more than normal. She's had nausea and diarrhea for about 5 days. The diarrhea today was 7 loose stools. She's had a sore throat for a month. She thinks she may be dehydrated. She's had a recent past medical history significant for cancer. She is currently taking chemotherapy for lung cancer in both lungs. A few years ago she had colon cancer with apparent metastases to the liver. She had a partial colectomy and lobectomy of the liver. Her last chemotherapy for lung cancer was one week ago. In addition her past medical history is significant for anxiety, high cholesterol, and hypertension. (ANTWAN IRAHETA) Allergies/Adverse Reactions: hydrocodone Adverse Reaction (Mild, Verified 07/22/17 16:37) Itching adhesive tape Adverse Reaction (Verified 07/22/17 16:37) Home Medications: Oxybutynin Chloride Xl 5 mg [Ditropan XL 5 MG] 5 mg PO BID 10/13/13 [ History] Gabapentin 300 mg PO BID 10/25/14 [History] Venlafaxine HCl ER 75 mg [Effexor XR 75 MG] 75 mg PO DAILY 10/25/14 [ History] Atorvastatin Calcium [Lipitor 40Mg] 40 mg PO DAILY 10/06/15 [History] L.acidoph,Paracasei, B.lactis [Probiotic] 1 tablet PO DAILY 11/24/15 [History] Fluoxetine HCl 10 mg [Prozac 10 mg] 10 mg PO DAILY 04/27/16 [History] Multivitamin [Multivitamins] 1 each PO DAILY 04/27/16 [History] Lisinopril 10 mg [Zestril 10 MG] 20 mg PO DAILY 05/28/16 [History] Ascorbate Calcium [Vitamin C] 500 mg PO DAILY 11/28/16 [History] Insulin NPH Hum/Reg Insulin Hm [Relion Novolin 70-30 Vial] 75 units SQ BID 07/22 [History] - Review of Systems Constitutional: Weakness Eyes: No Symptoms Ears, Nose, & Throat: Throat Pain Respiratory: No Cough, No Dyspnea Cardiac: No Chest Pain, No Edema, No Syncope Abdominal/Gastrointestinal: Abdominal Pain, Nausea, Diarrhea, No Vomiting Genitourinary Symptoms: No Dysuria Musculoskeletal: No Back Pain, No Neck Pain Skin: No Rash Neurological: No Dizziness, No Focal Weakness, No Sensory Changes Psychological: No Symptoms Endocrine: No Symptoms Hematologic/Lymphatic: No Symptoms Immunological/Allergic: No Symptoms All Other Systems: Reviewed and Negative <ANTWAN IRAHTEA - Last Filed: 07/22/17 19:20> - Past Medical History Pertinent Past Medical History: Yes Neurological History: No Pertinent History ENT History: No Pertinent History Cardiac History: No Pertinent History Respiratory History: Lung Cancer Endocrine Medical History: Liver Disease Musculoskeletal History: Other GI Medical History: Colorectal Cancer History: No Pertinent History Psycho-Social History: No Pertinent History Female Reproductive Disorders: No Pertinent History Other Medical History: HX OF MRSA. COLON CANCER,chemo tx. liver cancer-- PARTIAL HEPATECTOMY 60 % - Past Surgical History Past Surgical History: Yes Neuro Surgical History: No Pertinent History Cardiac: No Pertinent History Respiratory: No Pertinent History Gastrointestinal: No Pertinent History, Bowel Surgery, Colon Resection Genitourinary: No Pertinent History Musculoskeletal: Joint Replacement, Orthopedic Surgery Female Surgical History: Hysterectomy Other Surgical History: bone removed d/t infection. antibiotic beads left lower leg. PORT PLACED. left knee replaced. PARTIAL HEPATECTOMY 60 % REMOVED 09/25/2015, cyst removed from her back - Social History Smoking Status: Never smoker Exposure to second hand smoke: No Drug Use: none Patient Lives Alone: No - Female History Hx Now: No <ANTWAN IRAHETA - Last Filed: 07/22/17 19:20> - Physical Exam General Appearance: no apparent distress, alert Eye Exam: PERRL/EOMI, eyes nml inspection Ears, Nose, Throat Exam: normal ENT inspection, TMs normal, pharynx normal, moist mucous membranes Neck Exam: normal inspection, non-tender, supple, full range of motion Respiratory Exam: normal breath sounds, lungs clear, No respiratory distress Cardiovascular Exam: regular rate/rhythm, normal heart sounds, normal peripheral pulses Gastrointestinal/Abdomen Exam: soft, normal bowel sounds, No tenderness, No mass Pelvic Exam: not done Rectal Exam: not done Back Exam: normal inspection, normal range of motion, No CVA tenderness, No vertebral tenderness Extremity Exam: normal inspection Neurologic Exam: alert, oriented x 3, cooperative, normal mood/affect, nml cerebellar function, nml station & gait, sensation nml, No motor deficits Skin Exam: normal color, warm, dry, No rash Lymphatic Exam: No adenopathy SpO2 Interpretation: normal SpO2: 97 Oxygen Delivery: Room Air <ANTWAN IRAHETA - Last Filed: 07/22/17 19:20> - Nursing Vital Signs Nursing Vital Signs: Initial Vital Signs Temperature 97.5 F 07/22/17 16:16 Pulse Rate 70 07/22/17 16:16 Respiratory Rate 16 07/22/17 16:16 Blood Pressure 165/69 07/22/17 16:16 O2 Sat by Pulse Oximetry 97 07/22/17 16:16 Pain Scale Pain Intensity 0 - Course EKG Interpreted by Me: RATE, Sinus Rhythm, NORMAL AXIS, NORMAL INTERVALS, NORMAL QRS, NORMAL ST-T, Other (no change comp EKG 10/27/16) <ANTWAN IRAHETA - Last Filed: 07/22/17 19:20> - CT Exams Abdomen/Pelvis CT Interpretation: Discussed w/radiologist (COMPARED TO 05/31/17: NEW MILD MESENTERIC STRANDING EITHER RELATED TO CHEMO, CONGESTION OR MESENTERIC ADENITIS. NO FREE FLUID/AIR. STABLE POST OP CHANGES, SPLENOMEGALY, LEFT RENAL CYST, UMBILICAL HERNIA W/O OBSTRUCTION & BIBASILAR METASTATIC NODULES. PREVIOUS HEPATIC LESION NOT SEEN ON THIS NONCONTRAST EXAM.) <ANTWAN MANCIA - Last Filed: 07/22/17 22:20> Ordered Tests: Active Orders 24 hr Category Date Time Status Accucheck STAT Care 07/22/17 20:21 Active EKG-ER Only STAT Care 07/22/17 17:05 Active IV Insertion STAT Care 07/22/17 17:05 Active ABDOMEN AND PELVIS W/0 CONTRAS [CT] Stat Exams 07/22/17 17:46 Taken CHEST 2 VIEWS (PA AND LAT) Stat Exams 07/22/17 22:16 Taken AMYLASE Stat Lab 07/22/17 17:39 Completed CBC W DIFF Stat Lab 07/22/17 17:39 Completed CMP Stat Lab 07/22/17 17:39 Completed LIPASE Stat Lab 07/22/17 17:39 Completed Lactic Acid Stat Lab 07/22/17 17:05 Completed TROPONIN Q3H Lab 07/22/17 17:39 Completed TROPONIN Q3H Lab 07/22/17 20:15 Completed TROPONIN Q3H Lab 07/22/17 23:15 Ordered TROPONIN Q3H Lab 07/23/17 02:15 Ordered TROPONIN Q3H Lab 07/23/17 05:15 Ordered UA W/RFX UR CULTURE Stat Lab 07/22/17 22:00 Completed Medication Summary Discontinued Medications Generic Name Dose Route Start Last Admin Trade Name Freq PRN Reason Stop Dose Admin Famotidine 20 mg 07/22/17 17:05 07/22/17 17:53 Pepcid 20 Mg Vial IV 07/22/17 17:06 20 mg STAT ONE Administration Famotidine Confirm 07/22/17 17:52 Pepcid 20 Mg Vial Administered 07/22/17 17:53 Dose 20 mg IV .STK-MED ONE Sodium Chloride 1,000 mls @ 999 mls/hr 07/22/17 17:05 07/22/17 17:53 Sodium Chloride 0.9% 1000 Ml IV 07/22/17 18:05 999 mls/hr .Q1H1M STA Administration Sodium Chloride Confirm 07/22/17 17:52 Sodium Chloride 0.9% 1000 Ml Administered 07/22/17 17:53 Dose 1,000 mls @ ud .ROUTE .STK-MED ONE Ondansetron HCl 4 mg 07/22/17 17:05 07/22/17 17:54 Zofran 4 Mg/2 Ml Vial IV 07/22/17 17:06 4 mg STAT ONE Administration Ondansetron HCl Confirm 07/22/17 17:52 Zofran 4 Mg/2 Ml Vial Administered 07/22/17 17:53 Dose 4 mg .ROUTE .STK-MED ONE Lab/Rad Data: Laboratory Result Diagrams 07/22/17 17:39 07/22/17 17:39 Laboratory Results 07/22/17 07/22/17 07/22/17 Range/Units 22:00 20:15 17:39 WBC 3.7 L (4.0-10.5) K/mm3 RBC 4.30 (4.1-5.4) M/mm3 Hgb 12.1 (12.0-16.0) gm/dl Hct 37.4 (35-47) % MCV 87.0 (78-100) fl MCH 28.1 (26-32) pg MCHC 32.4 (32-36) g/dl RDW 14.9 H (11.5-14.0) % Plt Count 72 L (150-450) K/mm3 MPV 9.6 H (6-9.5) fl Gran % 64.2 (36.0-66.0) % Lymphocytes % 22.6 L (24.0-44.0) % Monocytes % 10.2 (0.0-12.0) % Eosinophils % 2.7 (0.00-5.0) % Basophils % 0.3 (0.0-0.4) % Basophils # 0.01 (0-0.4) Sodium (136-145) mEq/L Potassium (3.5-5.1) mEq/L Chloride (98-107) mEq/L Carbon Dioxide (21-32) mEq/L Anion Gap (5-15) MEQ/L BUN (9-20) mg/dL Creatinine (0.55-1.30) mg/dl Estimated GFR ML/MIN Glucose (70-110) MG/DL Lactic Acid (0.4-2.0) Calcium (8.5-10.1) mg/dL Total Bilirubin (0.2-1.0) mg/dL AST (15-37) U/L ALT (12-78) U/L Alkaline Phosphatase (46-116) U/L Troponin I < 0.017 (0.000-0.056) ng/ml Serum Total Protein (6.4-8.2) gm/dL Albumin (3.4-5.0) g/dL Amylase (25-115) U/L Lipase (73-393) U/L Ur Collection Type CLEAN CATCH Urine Color YELLOW (YELLOW) Urine Appearance CLEAR (CLEAR) Urine pH 5.0 (5-6) Ur Specific Bude 1.010 (1.005-1.025) Urine Protein NEGATIVE (Negative) Urine Ketones NEGATIVE (NEGATIVE) Urine Blood NEGATIVE (0-5) Wilder/ul Urine Nitrite NEGATIVE (NEGATIVE) Urine Bilirubin NEGATIVE (NEGATIVE) Urine Urobilinogen NORMAL (0-1) mg/dL Ur Leukocyte Esterase NEGATIVE (NEGATIVE) Urine Culture Reflexed NO (NO) Urine Glucose NEGATIVE (NEGATIVE) mg/dL Slides for Path Review YES Specimen Received [id number] 07/22/17 07/22/17 07/22/17 Range/Units 17:39 17:39 17:05 WBC (4.0-10.5) K/mm3 RBC (4.1-5.4) M/mm3 Hgb (12.0-16.0) gm/dl Hct (35-47) % MCV (78-100) fl MCH (26-32) pg MCHC (32-36) g/dl RDW (11.5-14.0) % Plt Count (150-450) K/mm3 MPV (6-9.5) fl Gran % (36.0-66.0) % Lymphocytes % (24.0-44.0) % Monocytes % (0.0-12.0) % Eosinophils % (0.00-5.0) % Basophils % (0.0-0.4) % Basophils # (0-0.4) Sodium 141 (136-145) mEq/L Potassium 4.1 (3.5-5.1) mEq/L Chloride 107 (98-107) mEq/L Carbon Dioxide 28.1 (21-32) mEq/L Anion Gap 10.2 (5-15) MEQ/L BUN 11 (9-20) mg/dL Creatinine 0.77 (0.55-1.30) mg/dl Estimated GFR > 60 ML/MIN Glucose 56 L (70-110) MG/DL Lactic Acid 0.9 (0.4-2.0) Calcium 8.9 (8.5-10.1) mg/dL Total Bilirubin 0.70 (0.2-1.0) mg/dL AST 25 (15-37) U/L ALT 20 (12-78) U/L Alkaline Phosphatase 84 (46-116) U/L Troponin I < 0.017 (0.000-0.056) ng/ml Serum Total Protein 7.0 (6.4-8.2) gm/dL Albumin 3.2 L (3.4-5.0) g/dL Amylase 24 L (25-115) U/L Lipase 69 L (73-393) U/L Ur Collection Type Urine Color (YELLOW) Urine Appearance (CLEAR) Urine pH (5-6) Ur Specific Bude (1.005-1.025) Urine Protein (Negative) Urine Ketones (NEGATIVE) Urine Blood (0-5) Wilder/ul Urine Nitrite (NEGATIVE) Urine Bilirubin (NEGATIVE) Urine Urobilinogen (0-1) mg/dL Ur Leukocyte Esterase (NEGATIVE) Urine Culture Reflexed (NO) Urine Glucose (NEGATIVE) mg/dL Slides for Path Review Specimen Received <ANTWAN IRAHETA - Last Filed: 07/22/17 19:20> - Progress Discussed with Dr.: Lim ([id number]) <ANTWAN MANCIA - Last Filed: 07/22/17 22:20> - Progress Progress Note: 07/22/17 19:20 Pt care discussed and care transferred to Dr Mancia at 19:00. (ANTAWN IRAHETA) 07/22/17 20:[address] MANCIA @ 1920: PERRL, PHARYNX PINK, CERUMEN OCCLUSION OF LEFT EAC, LUNGS CLEAR, NO CARDIAC RUB, ABDOMINAL B.S. MILDLY HYPERACTIVE AND NORMOTONIC, DEFORMITY OF THE LEFT LEG/FOOT WITH LEFT FOOT DROP(ONGOING), ALERT & COOPERATIVE. (ANTWAN MANCIA) <ANTWAN IRAHETA - Last Filed: 07/22/17 19:20> - Departure Time of Disposition: 22:20 Departure Disposition: Observation Critical Care Time: No <ANWTAN MANCIA - Last Filed: 07/22/17 22:20> - Departure Clinical Impression: GENERALIZED WEAKNESS, DIARRHEA, HYPOGLYCEMIA, DM, LUNG CANCER, LEFT FOOT DROP, DEFORMITY OF LEFT LEG/FOOT Condition: Stable Referrals: PEARL LIM MD [Primary Care Provider] -
[2017-07-22] MEDS ORDERED: Sodium Chloride 0.9% 1000 ML 1,000 ML IV STA (17:05)
[2017-07-22] MEDS ORDERED: Pepcid 20 MG VIAL IV ONE ×2 (17:05→17:52)
[2017-07-22] MEDS ORDERED: Zofran 4 MG/2 ML VIAL IV ONE (17:05)
[2017-07-22] MEDS ORDERED: Zofran 4 MG/2 ML VIAL ONE (17:52)
[2017-07-22] MEDS ORDERED: Sodium Chloride 0.9% 1000 ML 1,000 ML ONE (17:52)
[2017-07-22 18:13] LABS: ALBUMIN 3.2 g/dL (3.4-5.0); ALKALINE PHOSPHATASE 84 U/L (46-116); AMYLASE 24 U/L (25-115); ANION GAP 10.2 MEQ/L (5-15); BLOOD UREA NITROGEN 11 mg/dL (9-20); CHLORIDE 107 mEq/L (98-107); Calcium 8.9 mg/dL (8.5-10.1); Carbon Dioxide 28.1 mEq/L (21-32); Creatinine 1 0.77 mg/dl (0.55-1.30); EST GLOMERULAR FILTRATION RATE > 60 ML/MIN; Glucose 56 MG/DL (70-110); LIPASE 69 U/L (73-393); Potassium 4.1 mEq/L (3.5-5.1); SGOT/AST 25 U/L (15-37); SGPT/ALT 20 U/L (12-78); SODIUM 141 mEq/L (136-145)
[2017-07-22 18:52] LABS: BASOPHIL % 0.3 % (0.0-0.4); Basophil (Absolute #) 0.01 (0-0.4); Eosinophil % 2.7 % (0.00-5.0); Granulocyte Absolute (ANC) 2.38 (1.4-6.9); Granulocytes % 64.2 % (36.0-66.0); Hematocrit 37.4 % (35-47); Hemoglobin 12.1 gm/dl (12.0-16.0); Lymphocyte (Absolute #) 0.84 (1.0-4.6); Lymphocytes % 22.6 % (24.0-44.0); Mean Corpuscular Hemoglobin 28.1 pg (26-32); Mean Corpuscular Hgb Concent. 32.4 g/dl (32-36); Mean Platelet Volume 9.6 fl (6-9.5); Monocyte (Absolute #) 0.38 (0.0-1.3); Monocytes % 10.2 % (0.0-12.0); Platelet Count 72 K/mm3 (150-450); Red Cell Distribution Width 14.9 % (11.5-14.0); White Blood Count 3.7 K/mm3 (4.0-10.5)
[2017-07-22 19:27] LABS: Slide Review 1 YES
[2017-07-22 22:14] LABS: Appearance CLEAR (CLEAR); Bilirubin NEGATIVE (NEGATIVE); Blood NEGATIVE Ery/ul (0-5); Glucose NEGATIVE (NEGATIVE); Ketones NEGATIVE (NEGATIVE); Leukocyte Esterase NEGATIVE (NEGATIVE); Nitrite NEGATIVE (NEGATIVE); Protein,Urine Dip NEGATIVE (Negative); Urobilinogen NORMAL mg/dL (0-1)
[2017-07-22] MEDS ORDERED: Zofran 4 MG/2 ML VIAL IV PRN (22:55)
[2017-07-23] MEDS: Sodium Chloride 0.9% 1000 ML 1,000 ML IV SCH ×3 (00:02→17:28)
[2017-07-23 05:38] LABS: BASOPHIL % 0.3 % (0.0-0.4); Basophil (Absolute #) 0.01 (0-0.4); Eosinophil (Absolute #) 0.09 (0-0.5); Granulocyte Absolute (ANC) 1.79 (1.4-6.9); Granulocytes % 59.3 % (36.0-66.0); Hematocrit 35.7 % (35-47); Hemoglobin 11.4 gm/dl (12.0-16.0); Lymphocyte (Absolute #) 0.81 (1.0-4.6); Lymphocytes % 26.8 % (24.0-44.0); Mean Cell Volume 88.1 fl (78-100); Mean Corpuscular Hemoglobin 28.1 pg (26-32); Mean Corpuscular Hgb Concent. 31.9 g/dl (32-36); Monocyte (Absolute #) 0.32 (0.0-1.3); Monocytes % 10.6 % (0.0-12.0); Platelet Count 65 K/mm3 (150-450); Red Blood Count 4.05 M/mm3 (4.1-5.4); Red Cell Distribution Width 14.9 % (11.5-14.0)
[2017-07-23 06:08] LABS: ALKALINE PHOSPHATASE 82 U/L (46-116); BLOOD UREA NITROGEN 12 mg/dL (9-20); CHLORIDE 110 mEq/L (98-107); Calcium 9.3 mg/dL (8.5-10.1); Carbon Dioxide 29.9 mEq/L (21-32); Creatinine 1 0.86 mg/dl (0.55-1.30); EST GLOMERULAR FILTRATION RATE > 60 ML/MIN; Glucose 92 MG/DL (70-110); Potassium 5.1 mEq/L (3.5-5.1); SGOT/AST 23 U/L (15-37); SGPT/ALT 19 U/L (12-78); SODIUM 145 mEq/L (136-145); Total Protein 6.6 gm/dL (6.4-8.2)
--- NOTE | 2017-07-23 08:37 | XRAY ---
Indication: Diarrhea and bilateral lower quadrant abdominal pain. Current chemotherapy for colon cancer. Multiple contiguous axial images obtained through the abdomen and pelvis without contrast as ordered. Comparison: May 31, 2017. Lung bases again demonstrates multiple bilateral pulmonary nodules, biopsy proven metastasis. No infiltrate or effusion. Heart is not enlarged. Noncontrasted stomach and bowel loops appear nonobstructed again with post surgical changes related to partial right hemicolectomy. There is now mild mesenteric stranding either mesenteric congestion or mesenteric adenitis or possibly related to patient's therapy for colon cancer. No free fluid/air. Stable partial resection of the right lobe of the liver. Previous subtle hypodense lesion in the right lobe of the liver near the dome of the diaphragm appears grossly unchanged. Also stable left renal cyst, cholecystectomy, hysterectomy, and umbilical hernia again with nonobstructing nonincarcerated small bowel herniation. Spleen remains enlarged today measuring 15.2 cm in greatest axial dimension. Remaining pancreas, adrenal glands, kidneys, ureters, and bladder appear unremarkable for noncontrast exam. Stable mild aortoiliac calcifications without AAA. Osseous structures intact again with mild degenerative changes throughout the spine/hips and mild levorotoscoliosis. Impression: 1. New mesenteric stranding either mesenteric congestion, mesenteric adenitis, or related to patient's therapy. 2. Stable umbilical hernia without incarceration/obstruction, splenomegaly, left renal cyst, and postsurgical changes. 3. Stable bibasilar pulmonary nodules and hepatic hypodense lesion favoring metastasis. CT DI 33.26
[2017-07-23 08:41] LABS: Slide Review 1 YES
--- NOTE | 2017-07-23 08:46 | PCM.HP ---
History of Present Illness - Chief Complaint Chief Complaint: GENERALIZED WEAKNESS; DIARRHEA; HYPOGLYCEMIA. History of Present Illness: is a 62 year old female pt of Dr. Lim with lung ca who c/o several days of diarrhea and mid abd pain at home. Had 7 BMs yesterday. She came to the ER, was found to have leukopenia and thrombocytopenia (ongoing). Feeling better this morning with IV fluids. Only 1 BM since admission (this morning). - Review of Systems Constitutional: No Fever Abdominal/Gastrointestinal: Abdominal Pain, Diarrhea, Other (kristi po at home), No Vomiting Musculoskeletal: Other (LLE abnormality as usual) Hematologic/Lymphatic: Other (Low platelets, ongoing) All Other Systems: Reviewed and Negative Medications & Allergies Home Medications: Home Medication List Oxybutynin Chloride Xl 5 mg [Ditropan XL 5 MG] 5 mg PO BID 10/13/13 [ History Confirmed 07/22/17] Gabapentin 300 mg PO BID 10/25/14 [History Confirmed 07/22/17] Venlafaxine HCl ER 75 mg [Effexor XR 75 MG] 75 mg PO DAILY 10/25/14 [ History Confirmed 07/22/17] Atorvastatin Calcium [Lipitor 40Mg] 40 mg PO DAILY 10/06/15 [History Confirmed 07/22/17] L.acidoph,Paracasei, B.lactis [Probiotic] 1 tablet PO DAILY 11/24/15 [History Confirmed 07/22/17] Fluoxetine HCl 10 mg [Prozac 10 mg] 10 mg PO DAILY 04/27/16 [History Confirmed 07/22/17] Multivitamin [Multivitamins] 1 each PO DAILY 04/27/16 [History Confirmed ] Lisinopril 10 mg [Zestril 10 MG] 20 mg PO DAILY 05/28/16 [History Confirmed 07/22/17] Ascorbate Calcium [Vitamin C] 500 mg PO DAILY 11/28/16 [History Confirmed ] Alprazolam [Xanax] 0.5 mg PO DAILY #30 tablet 11/30/16 [Rx Confirmed 07/22/17] Insulin NPH Hum/Reg Insulin Hm [Relion Novolin 70-30 Vial] 75 units SQ BID 07/22 [History Confirmed 07/22/17] Allergies/Adverse Reactions: Allergies Allergy/AdvReac Type Severity Reaction Status Date / Time hydrocodone AdvReac Mild Itching Verified 07/22/17 16:37 adhesive tape AdvReac Verified 07/22/17 16:37 - Past Medical History Past Medical History: Yes Neurological History: No Pertinent History ENT History: No Pertinent History Cardiac History: No Pertinent History Respiratory History: Lung Cancer Endocrine Medical History: Liver Disease Musculoskelatal History: Other GI Medical History: Colorectal Cancer History: No Pertinent History Pyscho-Social History: No Pertinent History Reproductive Disorders: No Pertinent History Comment: HX OF MRSA. COLON CANCER,chemo tx. liver cancer--PARTIAL HEPATECTOMY 60 % - Female History Are you now?: No - Past Surgical History Past Surgical History: Yes Neuro Surgical History: No Pertinent History Cardiac History: No Pertinent History Respiratory Surgery: No Pertinent History GI Surgical History: No Pertinent History, Bowel Surgery, Colon Resection Genitourinary Surgical Hx: No Pertinent History Musculskeletal Surgical Hx: Joint Replacement, Orthopedic Surgery Female Surgical History: Hysterectomy Other Surgical History: bone removed d/t infection. antibiotic beads left lower leg. PORT PLACED. left knee replaced. PARTIAL HEPATECTOMY 60 % REMOVED 09/25/2015, cyst removed from her back - Social History Smoking Status: Former smoker How long have you smoked: 1 year Exposure to second hand smoke: Yes Alcohol: None Drug Use: none - Physical Exam Vital Signs: Vital Signs - 24 hr Temp Pulse Resp BP Pulse Ox 07/23/17 07:10 97.8 F 70 20 150/64 95 07/23/17 04:00 97.7 F 70 18 155/66 96 07/22/17 23:02 98.1 F 66 20 159/69 93 L 07/22/17 22:40 68 18 130/60 07/22/17 20:50 66 18 133/58 98 07/22/17 19:50 66 16 156/67 99 07/22/17 19:22 97 07/22/17 19:11 75 16 142/70 97 07/22/17 18:37 74 16 141/95 96 07/22/17 16:16 97.5 F 70 16 165/69 97 General Appearance: no apparent distress, alert Neurologic Exam: oriented x 3, cooperative Eye Exam: eyes nml inspection Ears, Nose, Throat Exam: moist mucous membranes Neck Exam: normal inspection Respiratory Exam: normal breath sounds, lungs clear, No crackles/rales, No rhonchi, No wheezing Cardiovascular Exam: regular rate/rhythm, normal heart sounds, No murmur Gastrointestinal/Abdomen Exam: soft, normal bowel sounds, tenderness ( periumbilical), No distention, No mass, No guarding, No rebound Back Exam: normal inspection, No rash Extremity Exam: other (LLE with brace in place; no pretibial edema. RLE no c/c/e ) Skin Exam: normal color, warm, dry, No rash Results - Labs Lab/Micro Results: Accuchecks Date 07/23/17 Date 07/23/17 Date 07/22/17 Time 08:04 Time 05:00 Time 23:59 Accucheck Value: 86 Accucheck Value: 82 Accucheck Value: 99 Lab Results-Last 24 Hours 07/22/17 07/23/17 07/23/17 Range/Units 23:23 02:19 05:00 WBC (4.0-10.5) K/mm3 RBC (4.1-5.4) M/mm3 Hgb (12.0-16.0) gm/dl Hct (35-47) % MCV (78-100) fl MCH (26-32) pg MCHC (32-36) g/dl RDW (11.5-14.0) % Plt Count (150-450) K/mm3 MPV (6-9.5) fl Gran % (36.0-66.0) % Lymphocytes % (24.0-44.0) % Monocytes % (0.0-12.0) % Eosinophils % (0.00-5.0) % Basophils % (0.0-0.4) % Basophils # (0-0.4) Sodium (136-145) mEq/L Potassium (3.5-5.1) mEq/L Chloride (98-107) mEq/L Carbon Dioxide (21-32) mEq/L Anion Gap (5-15) MEQ/L BUN (9-20) mg/dL Creatinine (0.55-1.30) mg/dl Estimated GFR ML/MIN Glucose (70-110) MG/DL Calcium (8.5-10.1) mg/dL Total Bilirubin (0.2-1.0) mg/dL AST (15-37) U/L ALT (12-78) U/L Alkaline Phosphatase (46-116) U/L Troponin I < 0.017 < 0.017 < 0.017 (0.000-0.056) ng/ml Serum Total Protein (6.4-8.2) gm/dL Albumin (3.4-5.0) g/dL 07/23/17 07/23/17 Range/Units 05:00 05:00 WBC 3.0 L (4.0-10.5) K/mm3 RBC 4.05 L (4.1-5.4) M/mm3 Hgb 11.4 L (12.0-16.0) gm/dl Hct 35.7 (35-47) % MCV 88.1 (78-100) fl MCH 28.1 (26-32) pg MCHC 31.9 L (32-36) g/dl RDW 14.9 H (11.5-14.0) % Plt Count 65 L (150-450) K/mm3 MPV 9.0 (6-9.5) fl Gran % 59.3 (36.0-66.0) % Lymphocytes % 26.8 (24.0-44.0) % Monocytes % 10.6 (0.0-12.0) % Eosinophils % 3.0 (0.00-5.0) % Basophils % 0.3 (0.0-0.4) % Basophils # 0.01 (0-0.4) Sodium 145 (136-145) mEq/L Potassium 5.1 (3.5-5.1) mEq/L Chloride 110 H (98-107) mEq/L Carbon Dioxide 29.9 (21-32) mEq/L Anion Gap 10.0 (5-15) MEQ/L BUN 12 (9-20) mg/dL Creatinine 0.86 (0.55-1.30) mg/dl Estimated GFR > 60 ML/MIN Glucose 92 (70-110) MG/DL Calcium 9.3 (8.5-10.1) mg/dL Total Bilirubin 0.70 (0.2-1.0) mg/dL AST 23 (15-37) U/L ALT 19 (12-78) U/L Alkaline Phosphatase 82 (46-116) U/L Troponin I (0.000-0.056) ng/ml Serum Total Protein 6.6 (6.4-8.2) gm/dL Albumin 3.0 L (3.4-5.0) g/dL Accuchecks Date 07/23/17 Date 07/23/17 Date 07/22/17 Time 08:04 Time 05:00 Time 23:59 Accucheck Value: 86 Accucheck Value: 82 Accucheck Value: 99 Assessment/Plan (1) Diarrhea Current Visit: No Status: Acute Qualifiers: Diarrhea type: unspecified type Qualified Code(s): R19.7 - Diarrhea, unspecified Assessment & Plan: Will check c. diff if she has another episode of diarrhea. Fluids and advance diet slowly. Abd tenderness is not marked; exam is non acute. Code(s): R19.7 - DIARRHEA, UNSPECIFIED (2) Abdominal pain Current Visit: No Status: Acute Qualifiers: Abdominal location: epigastric Qualified Code(s): R10.13 - Epigastric pain Assessment & Plan: I think related to the diarrhea and will resolve as the diarrhea improves. Code(s): R10.9 - UNSPECIFIED ABDOMINAL PAIN (3) Colon adenocarcinoma Current Visit: No Status: Acute Assessment & Plan: Sees DR. Cota; currently undergoing chemotherapy. Code(s): C18.9 - MALIGNANT NEOPLASM OF COLON, UNSPECIFIED (4) Leukopenia Current Visit: No Status: Acute Code(s): D72.819 - DECREASED WHITE BLOOD CELL COUNT, UNSPECIFIED (5) Thrombocytopenia Current Visit: No Status: Acute Assessment & Plan: observe. (6) DVT prophylaxis Current Visit: Yes Status: Acute Assessment & Plan: Per chart hx PE; not on any blood thinners at home (pt currently thrombocytopenic). Advise early mobilization. Code(s): JNH2973 -
--- NOTE | 2017-07-23 09:01 | XRAY ---
Indication: Fatigue. Chemotherapy for lung cancer. Comparison: May 01, 2016. PA/lateral chest again demonstrates normal heart and lungs with right-sided Port-A-Cath and right upper quadrant abdominal surgical clips. Bony thorax intact with mild degenerative changes. No new/acute findings.
[2017-07-23] MEDS: THERAGRAN MULTIVITAMIN PO SCH (09:11)
[2017-07-23] MEDS: NEURONTIN 300 MG PO SCH ×2 (09:11→22:49)
[2017-07-23] MEDS: Ditropan XL 5 MG PO SCH ×2 (09:11→22:49)
[2017-07-23] MEDS: Acidophilus TABLET PO SCH (09:11)
[2017-07-23] MEDS: PROZAC 10 MG PO SCH (09:11)
[2017-07-23] MEDS: ZOCOR 20MG PO SCH (09:11)
[2017-07-23] MEDS: xanAX 0.5 MG PO SCH (09:11)
[2017-07-23] MEDS: Effexor XR 75 MG PO SCH (09:12)
[2017-07-23] MEDS: Zestril 20 MG PO SCH (09:12)
[2017-07-23] MEDS ORDERED: NON-FORMULARY ITEM (Multivitamin [Multivitamins] 1 EACH) PO SCH (10:00)
[2017-07-23] MEDS ORDERED: LIPITOR 40MG PO SCH (10:00)
[2017-07-23] MEDS ORDERED: Zestril 10 MG PO SCH (10:00)
[2017-07-23] MEDS ORDERED: FLUCELVAX QUAD 2017-2018 SYR IM ONE (10:00)
[2017-07-23] MEDS ORDERED: ACIDOPH PARACASEI B LACTIS PO SCH (10:00)
[2017-07-23] MEDS: NovoLOG Insulin SQ PRN ×2 (10:59→22:49)
[2017-07-24] MEDS: NovoLOG Insulin SQ PRN (00:56)
[2017-07-24] MEDS: Sodium Chloride 0.9% 1000 ML 1,000 ML IV SCH (02:32)
[2017-07-24 04:51] VITALS: O2SAT 97
[2017-07-24 07:31] VITALS: BP 131/60; PULSE 66
--- NOTE | 2017-07-24 08:08 | PCM.DS ---
Discharge Summary Date of Admission: 07/22/17 22:54 Admitting Physician: PEARL RANGEL Primary Care Provider: PEARL RANGEL Allergies Allergies hydrocodone Adverse Reaction (Mild, Verified 07/22/17 16:37) Itching adhesive tape Adverse Reaction (Verified 07/22/17 16:37) Hospital Summary - Hospital Course Hospital Course: patient was admitted with diarrhea and weakness, she is on chemotherapy for stage 4 colon cancer with lung mets. she is tolerating po now, feels well, diarrhea has resolved and has no vomiting. she feels like she will be able to function normally at home. her blood sugar was in the 50's on arrival, hadn't been eating much at home - Vitals & Intake/Output Vital Signs: Vital Signs Temperature 97.8 F 07/24/17 07:31 Pulse Rate 66 07/24/17 07:31 Respiratory Rate 18 07/24/17 07:31 Blood Pressure 131/60 07/24/17 07:31 O2 Sat by Pulse Oximetry 97 07/24/17 07:31 Intake & Output: Intake & Output 07/21/17 07/22/17 07/23/17 07/24/17 11:59 11:59 11:59 11:59 Intake Total 360 3137 Output Total 800 400 Balance -440 2737 Weight 117.8 kg 117.8 kg - Lab Result Diagrams: 07/23/17 05:00 07/23/17 05:00 Lab Results-Last 24 Hrs: Accuchecks Date 07/24/17 Date 07/24/17 Date 07/24/1707/23/17 Date 07/23/17 Date 07/23/17 Time 07:30 Time 04:05 Time 00:00 Time 20:17 Time 16:25 Time 10:58 Accucheck Value: 145 Accucheck Value: 120 Accucheck Value: 260 Accucheck Value: 237 Accucheck Value: 163 Accucheck Value: 134 Lab Results-Last 24 Hours 07/23/17 07/23/17 Range/Units 05:00 05:00 Hemoglobin A1c 5.9 (4.5-6.2) Slides for Path Review YES Micro Results-Entire Visit: Accuchecks Date 07/24/17 Date 07/24/17 Date 07/24/17 Date 07/23/17 Date 07/23/17 Date 07/23/17 Time 07:30 Time 04:05 Time 00:00 Time 20:17 Time 16:25 Time 10:58 Accucheck Value: 145 Accucheck Value: 120 Accucheck Value: 260 Accucheck Value: 237 Accucheck Value: 163 Accucheck Value: 134 Discharge Exam General Appearance: obese Neurologic Exam: alert, oriented x 3 Skin Exam: normal color, warm, dry Respiratory Exam: normal breath sounds, lungs clear, No respiratory distress Cardiovascular Exam: regular rate/rhythm, normal heart sounds Gastrointestinal/Abdomen Exam: soft, No tenderness, No mass Extremity Exam: other (scarring, muscle atrophy to left lower leg) Final Diagnosis/Problem List - Final Discharge Diagnosis/Problem (1) Diarrhea Current Visit: Yes Status: Acute (2) Hypoglycemia Current Visit: Yes Status: Acute Assessment & Plan: decrease home insulin dosage (3) Weakness Current Visit: Yes Status: Chronic - Discharge Disposition: Home, Self-Care Condition: Stable Prescriptions: Continue Oxybutynin Chloride Xl 5 mg [Ditropan XL 5 MG] 5 mg PO BID Venlafaxine HCl ER 75 mg [Effexor XR 75 MG] 75 mg PO DAILY Gabapentin 300 mg PO BID Atorvastatin Calcium [Lipitor 40Mg] 40 mg PO DAILY L.acidoph,Paracasei, B.lactis [Probiotic] 1 tablet PO DAILY Multivitamin [Multivitamins] 1 each PO DAILY Fluoxetine HCl 10 mg [Prozac 10 mg] 10 mg PO DAILY Lisinopril 10 mg [Zestril 10 MG] 20 mg PO DAILY Ascorbate Calcium [Vitamin C] 500 mg PO DAILY Alprazolam [Xanax] 0.5 mg PO DAILY #30 tablet Changed Insulin NPH Hum/Reg Insulin Hm [Relion Novolin 70-30 Vial] 30 units SQ BID # 1 vial Additional Instructions: cut your home insulin dose to 30 units twice daily, monitor blood sugars three times daily and f/u with Dr Rangel in 1 week. if your sugars are dropping below 100 at home call MD before appointment to adjust meds. Follow up with: PEARL RANGEL MD [Primary Care Provider] -
[2017-07-24] MEDS: Ditropan XL 5 MG PO SCH (09:00)
[2017-07-24] MEDS: Zestril 20 MG PO SCH (09:00)
[2017-07-24] MEDS: xanAX 0.5 MG PO SCH (09:00)
[2017-07-24] MEDS: PROZAC 10 MG PO SCH (09:00)
[2017-07-24] MEDS: NEURONTIN 300 MG PO SCH (09:00)
[2017-07-24] MEDS: Acidophilus TABLET PO SCH (09:00)
[2017-07-24] MEDS: Effexor XR 75 MG PO SCH (09:00)
[2017-07-24] MEDS: THERAGRAN MULTIVITAMIN PO SCH (09:00)
[2017-07-24] MEDS: ZOCOR 20MG PO SCH (09:01)
== END 2017-07-24 10:05 | disposition home or self-care (01) ==
LOC: ED 16:05 → MED SURG 22:54
PROVIDERS: ADMIT Family Medicine; ATTEND Family Medicine
DX: R19.7 Diarrhea, unspecified (principal); E16.2 Hypoglycemia, unspecified; R53.1 Weakness; Z79.899 Other long term (current) drug therapy; C18.9 Malignant neoplasm of colon, unspecified; C78.00 Secondary malignant neoplasm of unspecified lung; Z85.05 Personal history of malignant neoplasm of liver; Z86.14 Personal history of Methicillin resistant Staphylococcus aureus infection; D72.819 Decreased white blood cell count, unspecified; Z79.4 Long term (current) use of insulin; D69.6 Thrombocytopenia, unspecified
CPT/HCPCS: 36000; 36415; 71046; 74176; 80053; 81002; 82150; 82962; 83036; 83605; 83690; 84484; 85025; 93005; 96360; 96374; 99285; G0008; G0378; J1642; J2405; 90682; A9270-GY

== ENCOUNTER 2018-02-12 18:48 | Emergency (ER) | payer MEDICARE ==
--- NOTE | 2018-02-12 19:52 | ERPHSYRPT ---
- History of Present Illness Time Seen by Provider: 02/12/18 19:45 Source: patient, family Exam Limitations: no limitations Physician History: 62 y/o female with history of metastatic colon cancer currently on 5 FU comes to the ER with complaints of generalized weakness, dyspnea on exertion and diarrhea for the past 3 weeks. Pt states that she has episodes of diarrhea 5-6 times per week that is minimally relieved by pepto bismol. Pt feels she is dehydrated and has no energy. Pt last had chemotherapy 2 weeks ago. Pt also admits to a mild cough. Pt denies any fever, chills, chest pain, dizziness, palpitations, abdominal pain, nausea, vomiting or urinary symptoms. Timing/Duration: week(s) Severity: moderate Modifying Factors: Improves With: nothing Associated Symptoms: shortness of breath, loss of appetite, weakness Allergies/Adverse Reactions: hydrocodone Adverse Reaction (Mild, Verified 02/12/18 20:07) Itching adhesive tape Adverse Reaction (Verified 02/12/18 20:07) Home Medications: Oxybutynin Chloride Xl 5 mg [Ditropan XL 5 MG] 5 mg PO BID 10/13/13 [ History] Gabapentin 300 mg PO BID 10/25/14 [History] Venlafaxine HCl ER 75 mg [Effexor XR 75 MG] 75 mg PO DAILY 10/25/14 [ History] Atorvastatin Calcium [Lipitor 40Mg] 40 mg PO DAILY 10/06/15 [History] L.acidoph,Paracasei, B.lactis [Probiotic] 1 tablet PO DAILY 11/24/15 [History] Fluoxetine HCl 10 mg [Prozac 10 mg] 10 mg PO DAILY 04/27/16 [History] Multivitamin [Multivitamins] 1 each PO DAILY 04/27/16 [History] Lisinopril 10 mg [Zestril 10 MG] 20 mg PO DAILY 05/28/16 [History] Ascorbate Calcium [Vitamin C] 500 mg PO DAILY 11/28/16 [History] Hx Tetanus, Diphtheria Vaccination/Date Given: Yes Hx Influenza Vaccination/Date Given: No Hx Pneumococcal Vaccination/Date Given: Yes (2016) - Review of Systems Constitutional: Malaise, Weakness, No Fever, No Chills Eyes: No Symptoms Ears, Nose, & Throat: No Symptoms Respiratory: Dyspnea on Exertion (RODRIGEZ), No Cough, No Dyspnea Cardiac: No Chest Pain, No Edema, No Syncope Abdominal/Gastrointestinal: Diarrhea, No Abdominal Pain, No Nausea, No Vomiting Genitourinary Symptoms: No Dysuria, No Frequency, No Hematuria Musculoskeletal: No Back Pain, No Neck Pain Skin: No Symptoms, No Rash Neurological: No Dizziness, No Focal Weakness, No Sensory Changes Psychological: No Symptoms Endocrine: No Symptoms All Other Systems: Reviewed and Negative - Past Medical History Pertinent Past Medical History: Yes Neurological History: No Pertinent History ENT History: No Pertinent History Cardiac History: No Pertinent History Respiratory History: Lung Cancer Endocrine Medical History: Liver Disease Musculoskeletal History: Other GI Medical History: Colorectal Cancer History: No Pertinent History Psycho-Social History: No Pertinent History Female Reproductive Disorders: No Pertinent History Other Medical History: HX OF MRSA. COLON CANCER,chemo tx. liver cancer-- PARTIAL HEPATECTOMY 60 % - Past Surgical History Past Surgical History: Yes Neuro Surgical History: No Pertinent History Cardiac: No Pertinent History Respiratory: No Pertinent History Gastrointestinal: No Pertinent History, Bowel Surgery, Colon Resection Genitourinary: No Pertinent History Musculoskeletal: Joint Replacement, Orthopedic Surgery Female Surgical History: Hysterectomy Other Surgical History: bone removed d/t infection. antibiotic beads left lower leg. PORT PLACED. left knee replaced. PARTIAL HEPATECTOMY 60 % REMOVED 09/25/2015, cyst removed from her back - Social History Smoking Status: Former smoker How long have you smoked: 1 year Exposure to second hand smoke: Yes Drug Use: none Patient Lives Alone: No - Nursing Vital Signs Nursing Vital Signs: Initial Vital Signs Temperature 97.8 F 02/12/18 20:00 Pulse Rate 79 02/12/18 20:00 Respiratory Rate 20 02/12/18 20:00 Blood Pressure 148/72 02/12/18 20:00 O2 Sat by Pulse Oximetry 100 02/12/18 20:00 Pain Scale Pain Intensity 7 - Physical Exam General Appearance: alert, lethargy Eye Exam: PERRL/EOMI, eyes nml inspection Ears, Nose, Throat Exam: TMs normal, pharynx normal, dry mucous membranes Neck Exam: normal inspection, non-tender, supple, full range of motion Respiratory Exam: normal breath sounds, lungs clear, No respiratory distress Cardiovascular Exam: regular rate/rhythm, normal heart sounds, normal peripheral pulses Gastrointestinal/Abdomen Exam: soft, normal bowel sounds, No tenderness, No mass Back Exam: normal inspection, normal range of motion, No CVA tenderness, No vertebral tenderness Extremity Exam: normal inspection, normal range of motion, pelvis stable Neurologic Exam: alert, oriented x 3, cooperative, normal mood/affect, nml cerebellar function, nml station & gait, sensation nml, No motor deficits Skin Exam: normal color, warm, dry, No rash Lymphatic Exam: No adenopathy - Course Nursing assessment & vital signs reviewed: Yes Ordered Tests: Active Orders 24 hr Category Date Time Status CHEST 1 VIEW (PORTABLE) Stat Exams 02/12/18 19:50 Taken CBC W DIFF Stat Lab 02/12/18 20:45 Completed CK-Creatinine Phosphokinase Stat Lab 02/12/18 20:45 Completed CMP Stat Lab 02/12/18 20:45 Completed CULTURE,URINE Stat Lab 02/12/18 19:10 Received MAGNESIUM Stat Lab 02/12/18 20:45 Completed UA W/ MICROSCOPIC Stat Lab 02/12/18 19:10 Completed Medication Summary Discontinued Medications Generic Name Dose Route Start Last Admin Trade Name Nori PRN Reason Stop Dose Admin Sodium Chloride 1,000 mls @ 999 mls/hr 02/12/18 19:50 02/12/18 20:58 Sodium Chloride 0.9% 1000 Ml IV 02/12/18 20:50 999 mls/hr .Q1H1M STA Administration Sodium Chloride Confirm 02/12/18 20:52 Sodium Chloride 0.9% 1000 Ml Administered 02/12/18 20:53 Dose 1,000 mls @ ud .ROUTE .STK-MED ONE Lab/Rad Data: Laboratory Result Diagrams 02/12/18 20:45 02/12/18 20:45 Laboratory Results 02/12/18 02/12/18 02/12/18 Range/Units 20:45 20:45 19:10 WBC 3.0 L (4.0-10.5) K/mm3 RBC 3.93 L (4.1-5.4) M/mm3 Hgb 11.7 L (12.0-16.0) gm/dl Hct 35.3 (35-47) % MCV 89.8 (78-100) fl MCH 29.7 (26-32) pg MCHC 33.1 (32-36) g/dl RDW 17.2 H (11.5-14.0) % Plt Count 49 L (150-450) K/mm3 MPV 9.3 (6-9.5) fl Gran % 55.4 (36.0-66.0) % Eos # (Auto) 0.07 (0-0.5) Absolute Lymphs (auto) 0.74 L (1.0-4.6) Absolute Monos (auto) 0.50 (0.0-1.3) Lymphocytes % 25.0 (24.0-44.0) % Monocytes % 16.9 H (0.0-12.0) % Eosinophils % 2.4 (0.00-5.0) % Basophils % 0.3 (0.0-0.4) % Absolute Granulocytes 1.64 (1.4-6.9) Basophils # 0.01 (0-0.4) Sodium 142 (137-145) mmol/L Potassium 4.0 (3.5-5.1) mmol/L Chloride 108 H (98-107) mmol/L Carbon Dioxide 26 (22-30) mmol/L Anion Gap 11.3 (5-15) MEQ/L BUN 16 (7-17) mg/dL Creatinine 0.67 (0.52-1.04) mg/dL Estimated GFR > 60.0 ML/MIN Glucose 111 H (74-106) mg/dL Calcium 9.3 (8.4-10.2) mg/dL Magnesium 1.9 (1.6-2.3) mg/dL Total Bilirubin 1.20 (0.2-1.3) mg/dL AST 52 H (14-36) U/L ALT 29 (0-35) U/L Alkaline Phosphatase 121 (38-126) U/L Creatine Kinase 164 H (30-135) U/L Serum Total Protein 6.6 (6.3-8.2) g/dL Albumin 3.6 (3.5-5.0) g/dL Ur Collection Type VOID Urine Color DARK YELLOW (YELLOW) Urine Appearance CLEAR (CLEAR) Urine pH 5.0 (5-6) Ur Specific [place] 1.025 (1.005-1.025) Urine Protein NEGATIVE (Negative) Urine Ketones NEGATIVE (NEGATIVE) Urine Blood 5-10 (0-5) Wilder/ul Urine Nitrite NEGATIVE (NEGATIVE) Urine Bilirubin NEGATIVE (NEGATIVE) Urine Urobilinogen 1 (0-1) mg/dL Ur Leukocyte Esterase 2+ (NEGATIVE) Urine Microscopic RBC 5-10 (0-2) /HPF Urine Microscopic WBC 25-50 (0-5) /HPF Ur Epithelial Cells MODERATE (FEW) /HPF Urine Bacteria FEW (NEGATIVE) /HPF Urine Culture Reflexed YES (NO) Urine Glucose NEGATIVE (NEGATIVE) mg/dL Specimen Received 02/12 1915 - Progress Progress: improved Progress Note: 02/12/18 22:05 Pt feels better after receiving NS fluids. Pt has a UTI and will be treated with macrobid. Platelets are at 49,000 but she has had low platelets from previous labs. The CXR does not show any acute findings. The patient will be d/ c home and will F/U with PCP. - Departure Time of Disposition: 22:07 Departure Disposition: Home Clinical Impression: Dehydration UTI (urinary tract infection) Qualifiers: Urinary tract infection type: site unspecified Hematuria presence: without hematuria Qualified Code(s): N39.0 - Urinary tract infection, site not specified Condition: Stable Critical Care Time: No Referrals: PEARL RANGEL MD [Primary Care Provider] - Instructions: Dehydration, Adult (DC), Urinary Tract Infection, Adult (DC) Additional Instructions: Stay well hydrated. Finish the antibiotics until completion. Return to the ER if you continue to feel weak. Prescriptions: Nitrofurantoin Monohyd/M-Cryst [Macrobid 100 mg Capsule] 100 mg PO BID #13 capsule
[2018-02-12 20:07] VITALS: O2SAT 100
[2018-02-12] MEDS ORDERED: Sodium Chloride 0.9% 1000 ML 1,000 ML ONE (20:52)
[2018-02-12 20:58] LABS: BASOPHIL % 0.3 % (0.0-0.4); Basophil (Absolute #) 0.01 (0-0.4); Eosinophil % 2.4 % (0.00-5.0); Eosinophil (Absolute #) 0.07 (0-0.5); Granulocyte Absolute (ANC) 1.64 (1.4-6.9); Granulocytes % 55.4 % (36.0-66.0); Hematocrit 35.3 % (35-47); Hemoglobin 11.7 gm/dl (12.0-16.0); Lymphocyte (Absolute #) 0.74 (1.0-4.6); Mean Cell Volume 89.8 fl (78-100); Mean Corpuscular Hgb Concent. 33.1 g/dl (32-36); Mean Platelet Volume 9.3 fl (6-9.5); Monocytes % 16.9 % (0.0-12.0); Platelet Count 49 K/mm3 (150-450); Red Blood Count 3.93 M/mm3 (4.1-5.4); Red Cell Distribution Width 17.2 % (11.5-14.0)
[2018-02-12] MEDS: Sodium Chloride 0.9% 1000 ML 1,000 ML IV STA (20:58)
[2018-02-12 21:15] LABS: ALBUMIN 3.6 g/dL (3.5-5.0); ALKALINE PHOSPHATASE 121 U/L (38-126); ANION GAP 11.3 MEQ/L (5-15); BLOOD UREA NITROGEN 16 mg/dL (7-17); CHLORIDE 108 mmol/L (98-107); CK-Creatinine Phosphokinase 164 U/L (30-135); Calcium 9.3 mg/dL (8.4-10.2); Carbon Dioxide 26 mmol/L (22-30); Creatinine 1 0.67 mg/dL (0.52-1.04); Glucose 111 mg/dL (74-106); SGOT/AST 52 U/L (14-36); SGPT/ALT 29 U/L (0-35); SODIUM 142 mmol/L (137-145); Total Protein 6.6 g/dL (6.3-8.2)
[2018-02-12 21:25] LABS: Appearance CLEAR (CLEAR); Specific Gravity 1.025 (1.005-1.025)
[2018-02-12 21:26] LABS: Bilirubin NEGATIVE (NEGATIVE); Glucose NEGATIVE (NEGATIVE); Ketones NEGATIVE (NEGATIVE); Leukocyte Esterase 2+ (NEGATIVE); Nitrite NEGATIVE (NEGATIVE); Protein,Urine Dip NEGATIVE (Negative); Urobilinogen 1 mg/dL (0-1); WBC 25-50 /HPF (0-5)
[2018-02-12 21:27] LABS: Bacteria FEW /HPF (NEGATIVE); Epithelial Cells MODERATE /HPF (FEW)
[2018-02-12 21:46] LABS: Mean Corpuscular Hemoglobin 29.7 pg (26-32)
[2018-02-12] MEDS ORDERED: Macrobid 100MG Capsule ONE (22:18)
[2018-02-12] MEDS: Macrobid 100MG Capsule PO ONE (22:19)
[2018-02-12 22:43] VITALS: BP 144/63; PULSE 72
[2018-02-13 05:23] LABS: Slide Review 1 YES
--- NOTE | 2018-02-13 08:44 | XRAY ---
Indication: Cough. Comparison: July 22, 2017. Portable chest again demonstrates normal heart and lungs with right-sided Port-A-Cath. Bony thorax intact again with mild degenerative changes. No new/acute findings.
== END 2018-02-12 22:36 | disposition home or self-care (01) ==
LOC: ED 18:48
DX: E86.0 Dehydration (principal); N39.0 Urinary tract infection, site not specified; Z85.118 Personal history of other malignant neoplasm of bronchus and lung; Z85.038 Personal history of other malignant neoplasm of large intestine; Z86.14 Personal history of Methicillin resistant Staphylococcus aureus infection; Z85.05 Personal history of malignant neoplasm of liver; K76.9 Liver disease, unspecified; R53.1 Weakness; Z79.899 Other long term (current) drug therapy
CPT/HCPCS: 36415; 71045; 80053; 81000; 82550; 83735; 85025; 87077; 87086; 87186; 96360; 99284; J1642; A9270-GY

== ENCOUNTER 2018-08-22 09:42 | Inpatient (IN) | payer MEDICARE ==
[2018-08-22] MEDS ORDERED: xanAX 0.5 MG PO PRN (16:24)
--- NOTE | 2018-08-22 16:27 | XRAY ---
Indication: Pneumonia. Comparison: February 12, 2018. Portable chest demonstrates new blunting left costophrenic angle suggesting small pleural effusion. Remaining heart and lungs normal again with right-sided Port-A-Cath.
[2018-08-22] MEDS: Sodium Chloride 0.9% 1000 ML 1,000 ML IV SCH (16:51)
[2018-08-22] MEDS: ENOXAPARIN SODIUM SQ SCH (16:52)
[2018-08-22] MEDS: ROCEPHIN 1 Gm-D5w 50 ml Bag** 1 G/50 ML IVPB IV SCH (16:52)
[2018-08-22 17:02] LABS: Basophil (Absolute #) 0 (0-0.4); Eosinophil % 4.1 % (0.00-5.0); Eosinophil (Absolute #) 0.09 (0-0.5); Granulocyte Absolute (ANC) 1.37 (1.4-6.9); Granulocytes % 61.6 % (36.0-66.0); Hematocrit 35.7 % (35-47); Hemoglobin 11.2 gm/dl (12.0-16.0); Lymphocyte (Absolute #) 0.51 (1.0-4.6); Mean Corpuscular Hgb Concent. 31.4 g/dl (32-36); Mean Platelet Volume 9.1 fl (6-9.5); Monocyte (Absolute #) 0.25 (0.0-1.3); Monocytes % 11.3 % (0.0-12.0); Platelet Count 78 K/mm3 (150-450); Red Blood Count 4.25 M/mm3 (4.1-5.4); Red Cell Distribution Width 16.8 % (11.5-14.0); White Blood Count 2.2 K/mm3 (4.0-10.5)
[2018-08-22 17:10] LABS: Mean Corpuscular Hemoglobin 26.3 pg (26-32)
[2018-08-22 17:14] LABS: ALBUMIN 3.5 g/dL (3.5-5.0); ALKALINE PHOSPHATASE 126 U/L (38-126); ANION GAP 14.4 MEQ/L (5-15); BLOOD UREA NITROGEN 13 mg/dL (7-17); CHLORIDE 100 mmol/L (98-107); Carbon Dioxide 26 mmol/L (22-30); Creatinine 1 0.68 mg/dL (0.52-1.04); Glucose 119 mg/dL (74-106); Potassium 4.7 mmol/L (3.5-5.1); SGOT/AST 49 U/L (14-36); SGPT/ALT 20 U/L (0-35); SODIUM 136 mmol/L (137-145); Total Protein 7.1 g/dL (6.3-8.2)
[2018-08-22 17:48] LABS: INFLUENZA A NEGATIVE (NEGATIVE); INFLUENZA B NEGATIVE (NEGATIVE); RESPIRATORY SYNCTIAL VIRUS NEGATIVE (Negative)
[2018-08-22] MEDS: Zithromax 500 MG/ 250 ML NaCl Premix 500 MG/250 ML IVPB IV SCH (17:48)
[2018-08-22] MEDS: DUONEB 0.5-3 MG/3 ml Neb IH SCH (19:10)
[2018-08-22] MEDS: NORCO 5/325 MG PO PRN (20:20)
[2018-08-22] MEDS: Novolin 70/30 SQ SCH (22:48)
[2018-08-22] MEDS: NEURONTIN 300 MG PO SCH (22:48)
[2018-08-22] MEDS: ZOCOR 20MG PO SCH (22:48)
[2018-08-22] MEDS: Ditropan XL 5 MG PO SCH (22:48)
[2018-08-23] MEDS: NORCO 5/325 MG PO PRN ×3 (02:43→21:51)
[2018-08-23] MEDS: DUONEB 0.5-3 MG/3 ml Neb IH SCH ×5 (02:52→18:51)
[2018-08-23] MEDS: Sodium Chloride 0.9% 1000 ML 1,000 ML IV SCH ×2 (04:29→17:58)
[2018-08-23 09:28] LABS: Appearance CLEAR (CLEAR); Bacteria RARE /HPF (NEGATIVE); Bilirubin NEGATIVE (NEGATIVE); Blood NEGATIVE Ery/ul (0-5); Epithelial Cells RARE /HPF (FEW); Glucose NEGATIVE (NEGATIVE); Ketones NEGATIVE (NEGATIVE); Leukocyte Esterase NEGATIVE (NEGATIVE); Mucus SLIGHT /HPF (NEGATIVE); Nitrite NEGATIVE (NEGATIVE); Protein,Urine Dip NEGATIVE (Negative); RBC 0-2 /HPF (0-2); Specific Gravity 1.016 (1.005-1.025); Urobilinogen NEGATIVE mg/dL (0-1)
[2018-08-23] MEDS: ROCEPHIN 1 Gm-D5w 50 ml Bag** 1 G/50 ML IVPB IV SCH (09:47)
[2018-08-23] MEDS: Novolin 70/30 SQ SCH ×2 (09:49→21:52)
[2018-08-23] MEDS: Acidophilus TABLET PO SCH (09:50)
[2018-08-23] MEDS: ENOXAPARIN SODIUM SQ SCH (09:50)
[2018-08-23] MEDS: Ditropan XL 5 MG PO SCH ×2 (09:51→21:52)
[2018-08-23] MEDS: PROZAC 10 MG PO SCH (09:51)
[2018-08-23] MEDS: NEURONTIN 300 MG PO SCH ×2 (09:51→21:52)
[2018-08-23] MEDS: Effexor XR 75 MG PO SCH (09:51)
[2018-08-23] MEDS: Zestril 20 MG PO SCH (09:52)
[2018-08-23] MEDS: THERAGRAN MULTIVITAMIN PO SCH (09:52)
[2018-08-23] MEDS ORDERED: NON-FORMULARY ITEM (Multivitamin [Multivitamins] 1 EACH) PO SCH (10:00)
[2018-08-23] MEDS ORDERED: ACIDOPH PARACASEI B LACTIS PO SCH (10:00)
[2018-08-23] MEDS: Zithromax 500 MG/ 250 ML NaCl Premix 500 MG/250 ML IVPB IV SCH (10:53)
[2018-08-23] MEDS: NovoLOG Insulin SQ PRN ×3 (12:46→21:52)
[2018-08-23] MEDS ORDERED: Phenergan 25 MG INJ IV PRN (13:38)
[2018-08-23] MEDS ORDERED: Lasix 40 MG/4 ML IV ONE (13:39)
--- NOTE | 2018-08-23 13:47 | PCM.NOTE ---
Date and Time: 08/23/18 1341 Subjective Assessment: Pt was admitted by Dr. Lim through the office yesterday with several days of cough and fever. She was found to be negative for flu A and CXR read as blunt costophrenic angle suggesting small pleural effusion. Since admission, she does not feel any better. Fatigued. Complaining of pain in the epigastrum where she has a known hernia. Nayeli po but appetite is decreased (nonacutely). Pt's sister notes pt has been depressed since being told by oncology last week that she couldn't have chemo as he was afraid it would make her more ill, and also that she would not likely be able to have surgery on her hernias. - Review of Systems Constitutional: No Fever (Tmax here 99.6 in past 24 h) Respiratory: Cough Objective Exam General Appearance: mild distress, alert Neurologic Exam: oriented x 3, cooperative Skin Exam: normal color, warm, dry, No rash Respiratory Exam: lungs clear, diminished breath sounds, crackles/rales (RLL), No rhonchi, No wheezing Cardiovascular Exam: regular rate/rhythm, normal heart sounds, No murmur Gastrointestinal/Abdomen Exam: soft, normal bowel sounds, tenderness (epigastrum ; easily reducible hernia), distention (also protruberant large umbilical hernia ), No guarding, No rebound Extremity Exam: other (RLE misfigured (remotely)), No pedal edema, No swelling OBJECTIVE DATA Vital Signs: Vital Signs - 24 hr Temp Pulse Resp BP Pulse Ox 08/23/18 13:18 76 18 08/23/18 12:00 20 08/23/18 08:00 97.9 F 74 20 113/59 94 L 08/23/18 07:29 72 18 98 08/23/18 04:00 98.8 F 80 20 119/59 95 08/23/18 03:00 80 18 95 08/23/18 01:00 86 20 95 08/23/18 00:00 99.1 F 82 20 116/58 92 L 08/22/18 20:00 99.6 F 91 H 20 138/81 93 L 08/22/18 19:11 91 H 20 93 L 08/22/18 16:54 98.3 F 84 18 134/60 95 08/22/18 16:50 80 18 96 Pain Assessment - Last Documented Pain Intensity 6 Pain Scale Used 0-10 Pain Scale Intake and Output: Intake & Output 08/21/18 08/22/18 08/23/18 08/24/18 11:59 11:59 11:59 11:59 Intake Total 2271 Output Total 500 Balance 1771 Weight 114.2 kg Lab Results: Accuchecks Date 08/23/18 Date 08/23/18 Time 12:15 Time 07:30 Accucheck Value: 248 Accucheck Value: 125 Lab Results-Last 24 Hours 08/22/18 08/22/18 08/22/18 Range/Units 04:22 04:22 04:22 WBC 2.2 L (4.0-10.5) K/mm3 RBC 4.25 (4.1-5.4) M/mm3 Hgb 11.2 L (12.0-16.0) gm/dl Hct 35.7 (35-47) % MCV 84.0 (78-100) fl MCH 26.3 (26-32) pg MCHC 31.4 L (32-36) g/dl RDW 16.8 H (11.5-14.0) % Plt Count 78 L (150-450) K/mm3 MPV 9.1 (6-9.5) fl Gran % 61.6 (36.0-66.0) % Eos # (Auto) 0.09 (0-0.5) Absolute Lymphs (auto) 0.51 L (1.0-4.6) Absolute Monos (auto) 0.25 (0.0-1.3) Lymphocytes % 23.0 L (24.0-44.0) % Monocytes % 11.3 (0.0-12.0) % Eosinophils % 4.1 (0.00-5.0) % Basophils % 0.0 (0.0-0.4) % Absolute Granulocytes 1.37 L (1.4-6.9) Basophils # 0 (0-0.4) Sodium 136 L (137-145) mmol/L Potassium 4.7 (3.5-5.1) mmol/L Chloride 100 (98-107) mmol/L Carbon Dioxide 26 (22-30) mmol/L Anion Gap 14.4 (5-15) MEQ/L BUN 13 (7-17) mg/dL Creatinine 0.68 (0.52-1.04) mg/dL Estimated GFR > 60.0 ML/MIN Glucose 119 H (74-106) mg/dL Calcium 9.0 (8.4-10.2) mg/dL Total Bilirubin 0.90 (0.2-1.3) mg/dL AST 49 H (14-36) U/L ALT 20 (0-35) U/L Alkaline Phosphatase 126 (38-126) U/L Serum Total Protein 7.1 (6.3-8.2) g/dL Albumin 3.5 (3.5-5.0) g/dL Urine Color (YELLOW) Urine Appearance (CLEAR) Urine pH (5-6) Ur Specific [place] (1.005-1.025) Urine Protein (Negative) Urine Ketones (NEGATIVE) Urine Blood (0-5) Wilder/ul Urine Nitrite (NEGATIVE) Urine Bilirubin (NEGATIVE) Urine Urobilinogen (0-1) mg/dL Ur Leukocyte Esterase (NEGATIVE) Urine WBC (Auto) (0-5) /HPF Urine RBC (Auto) (0-2) /HPF U Epithel Cells (Auto) (FEW) /HPF Urine Bacteria (Auto) (NEGATIVE) /HPF Urine Mucus (Auto) (NEGATIVE) /HPF Urine Culture Reflexed (NO) Urine Glucose (NEGATIVE) mg/dL Influenza Type A Ag NEGATIVE (NEGATIVE) Influenza Type B Ag NEGATIVE (NEGATIVE) RSV (PCR) NEGATIVE (Negative) 08/23/18 Range/Units 07:00 WBC (4.0-10.5) K/mm3 RBC (4.1-5.4) M/mm3 Hgb (12.0-16.0) gm/dl Hct (35-47) % MCV (78-100) fl MCH (26-32) pg MCHC (32-36) g/dl RDW (11.5-14.0) % Plt Count (150-450) K/mm3 MPV (6-9.5) fl Gran % (36.0-66.0) % Eos # (Auto) (0-0.5) Absolute Lymphs (auto) (1.0-4.6) Absolute Monos (auto) (0.0-1.3) Lymphocytes % (24.0-44.0) % Monocytes % (0.0-12.0) % Eosinophils % (0.00-5.0) % Basophils % (0.0-0.4) % Absolute Granulocytes (1.4-6.9) Basophils # (0-0.4) Sodium (137-145) mmol/L Potassium (3.5-5.1) mmol/L Chloride (98-107) mmol/L Carbon Dioxide (22-30) mmol/L Anion Gap (5-15) MEQ/L BUN (7-17) mg/dL Creatinine (0.52-1.04) mg/dL Estimated GFR ML/MIN Glucose (74-106) mg/dL Calcium (8.4-10.2) mg/dL Total Bilirubin (0.2-1.3) mg/dL AST (14-36) U/L ALT (0-35) U/L Alkaline Phosphatase (38-126) U/L Serum Total Protein (6.3-8.2) g/dL Albumin (3.5-5.0) g/dL Urine Color YELLOW (YELLOW) Urine Appearance CLEAR (CLEAR) Urine pH 5.0 (5-6) Ur Specific [place] 1.016 (1.005-1.025) Urine Protein NEGATIVE (Negative) Urine Ketones NEGATIVE (NEGATIVE) Urine Blood NEGATIVE (0-5) Wilder/ul Urine Nitrite NEGATIVE (NEGATIVE) Urine Bilirubin NEGATIVE (NEGATIVE) Urine Urobilinogen NEGATIVE (0-1) mg/dL Ur Leukocyte Esterase NEGATIVE (NEGATIVE) Urine WBC (Auto) 6-10 (0-5) /HPF Urine RBC (Auto) 0-2 (0-2) /HPF U Epithel Cells (Auto) RARE (FEW) /HPF Urine Bacteria (Auto) RARE (NEGATIVE) /HPF Urine Mucus (Auto) SLIGHT (NEGATIVE) /HPF Urine Culture Reflexed NO (NO) Urine Glucose NEGATIVE (NEGATIVE) mg/dL Influenza Type A Ag (NEGATIVE) Influenza Type B Ag (NEGATIVE) RSV (PCR) (Negative) Radiology Exams: Radiology Procedures Category Date Time Status CHEST 1 VIEW (PORTABLE) Routine Exams 08/22/18 16:10 Completed CHEST 2 VIEWS (PA AND LAT) Routine Exams 08/23/18 Ordered Multi-Disciplinary Progress Notes: Multi-Disciplinary Progress Notes 08/22/18 17:25 Pharmacy Note by Joss Agee Patient has low platelets. Please review if Lovenox is needed. Initialized on 08/22/18 17:25 - END OF NOTE Assessment/Plan (1) Pneumonia Current Visit: Yes Status: Acute Qualifiers: Pneumonia type: due to unspecified organism Laterality: left Lung location: lower lobe of lung Qualified Code(s): J18.1 - Lobar pneumonia, unspecified organism Assessment & Plan: On day #2 rocephin and zithromax. With her immunocompromised status and clinical picture, we have to treat for pneumonia. Will add steroid to see if it improves her air exchange. Code(s): J18.9 - PNEUMONIA, UNSPECIFIED ORGANISM (2) Pleural effusion Current Visit: Yes Status: Acute Assessment & Plan: Recheck; will try a dose of lasix to see if it improves. Could see if it is something Dr. Francisco could tap on Saturday if it seems to be enlarging. Code(s): J90 - PLEURAL EFFUSION, NOT ELSEWHERE CLASSIFIED (3) Immunocompromised Current Visit: Yes Status: Chronic Assessment & Plan: Recheck WBC. Code(s): D84.9 - IMMUNODEFICIENCY, UNSPECIFIED (4) Colon cancer Current Visit: Yes Status: Chronic Qualifiers: Colon location: unspecified part of colon Qualified Code(s): C18.9 - Malignant neoplasm of colon, unspecified (5) Diabetes Current Visit: Yes Status: Chronic Qualifiers: Diabetes mellitus type: type 2 Diabetes mellitus retirement insulin use: without termite inspector use Diabetes mellitus complication status: without complication Qualified Code(s): E11.9 - Type 2 diabetes mellitus without complications Code(s): E11.9 - TYPE 2 DIABETES MELLITUS WITHOUT COMPLICATIONS (6) Hernia of anterior abdominal wall Current Visit: Yes Status: Chronic Assessment & Plan: x 2. Appear stable although uncomfortable. Code(s): K43.9 - VENTRAL HERNIA WITHOUT OBSTRUCTION OR GANGRENE
[2018-08-23] MEDS: solu-MEDROL 40 MG IV SCH ×2 (14:45→21:51)
[2018-08-23 15:54] LABS: Hematocrit 33.6 % (35-47); Hemoglobin 10.5 gm/dl (12.0-16.0); Mean Cell Volume 84.8 fl (78-100); Mean Corpuscular Hemoglobin 26.5 pg (26-32); Mean Corpuscular Hgb Concent. 31.3 g/dl (32-36); Mean Platelet Volume 8.8 fl (6-9.5); Platelet Count 66 K/mm3 (150-450); Red Blood Count 3.96 M/mm3 (4.1-5.4)
[2018-08-23 16:33] LABS: ANISOCYTOSIS 1+; BAND 8 % (0.0-2.0); Eosinophil 2 % (0.00-3.0); Hypochromia 1+; Lymphocytes 16 % (24-44); Monocyte 6 % (0.0-12.0); Neutrophils 68 % (36.0-66.0); Platelet Estimate DECREASED (NORMAL); Poikilocytosis 1+; Total Cells Counted 100
--- NOTE | 2018-08-23 21:47 | XRAY ---
Indication: Short of breath. Comparison: August 22, 2018. Portable chest demonstrates clearing of the previous left effusion with now minimal atelectasis/scarring. No focal infiltrate, consolidation, or large effusion. Heart is not enlarged again with right Port-A-Cath. Stable right upper abdomen surgical clips. Comment: Preliminary interpretation was made by [facility] who reports right infrahilar nodule obscured on previous exam due to differences in technique. CT chest June 12, 2018 documents multiple bilateral calcified/noncalcified nodules.
[2018-08-23] MEDS: ZOCOR 20MG PO SCH (21:52)
[2018-08-24] MEDS: DUONEB 0.5-3 MG/3 ml Neb IH SCH ×4 (00:23→19:33)
[2018-08-24] MEDS: solu-MEDROL 40 MG IV SCH (05:24)
[2018-08-24] MEDS: Sodium Chloride 0.9% 1000 ML 1,000 ML IV SCH ×2 (05:27→16:45)
[2018-08-24 06:00] LABS: Hematocrit 30.6 % (35-47); Hemoglobin 9.5 gm/dl (12.0-16.0); Mean Cell Volume 83.4 fl (78-100); Mean Platelet Volume 9.6 fl (6-9.5); Platelet Count 54 K/mm3 (150-450); Red Blood Count 3.67 M/mm3 (4.1-5.4); Red Cell Distribution Width 16.2 % (11.5-14.0)
[2018-08-24 06:14] LABS: Mean Corpuscular Hemoglobin 25.8 pg (26-32); White Blood Count 1.3 K/mm3 (4.0-10.5)
[2018-08-24 06:49] LABS: ANION GAP 14.3 MEQ/L (5-15); BLOOD UREA NITROGEN 17 mg/dL (7-17); CHLORIDE 103 mmol/L (98-107); Carbon Dioxide 23 mmol/L (22-30); Creatinine 1 0.54 mg/dL (0.52-1.04); Glucose 352 mg/dL (74-106); Potassium 3.9 mmol/L (3.5-5.1); SODIUM 136 mmol/L (137-145)
[2018-08-24] MEDS: NovoLOG Insulin SQ PRN ×4 (08:15→22:02)
[2018-08-24] MEDS: Novolin 70/30 SQ SCH ×2 (08:16→22:01)
[2018-08-24 08:34] LABS: BAND 10 % (0.0-2.0); Basophil 1 % (0.0-1.0); Lymphocytes 10 % (24-44); Neutrophils 79 % (36.0-66.0); Platelet Estimate DECREASED (NORMAL); Total Cells Counted 100
[2018-08-24 08:35] LABS: ANISOCYTOSIS 2+; Hypochromia 1+; Poikilocytosis 1+
[2018-08-24] MEDS: ROCEPHIN 1 Gm-D5w 50 ml Bag** 1 G/50 ML IVPB IV SCH (09:37)
[2018-08-24] MEDS: THERAGRAN MULTIVITAMIN PO SCH (09:38)
[2018-08-24] MEDS: ENOXAPARIN SODIUM SQ SCH (09:38)
[2018-08-24] MEDS: Ditropan XL 5 MG PO SCH ×2 (09:39→22:01)
[2018-08-24] MEDS: Acidophilus TABLET PO SCH (09:39)
[2018-08-24] MEDS: PROZAC 10 MG PO SCH (09:40)
[2018-08-24] MEDS: Effexor XR 75 MG PO SCH (09:41)
[2018-08-24] MEDS: NEURONTIN 300 MG PO SCH ×2 (09:41→22:01)
--- NOTE | 2018-08-24 09:43 | PCM.HP.ADD ---
Addendum to History & Physical - History & Physical Addendum Addendum to History & Physical: This certifies that the History & Physical in the electronic chart reflects the current health status of the patient. If there are changes in the H&P these changes/exceptions are listed as follows.
[2018-08-24] MEDS: Zestril 20 MG PO SCH (09:46)
[2018-08-24] MEDS: NORCO 5/325 MG PO PRN ×2 (09:47→20:16)
--- NOTE | 2018-08-24 09:48 | PCM.NOTE ---
Date and Time: 08/24/18 09 Subjective Assessment: She states she is still SOB, states no worse. Didn't think the lasix or steroid helped any. She is up to the sink, sitting on the bedside commode, washing her hair. - Review of Systems Constitutional: No Fever Respiratory: Cough, Short Of Breath Objective Exam General Appearance: no apparent distress, alert Neurologic Exam: oriented x 3, cooperative Skin Exam: normal color, warm, dry, No rash Respiratory Exam: diminished breath sounds (good air exchange), crackles/rales ( faint, RLL), No rhonchi, No wheezing Cardiovascular Exam: regular rate/rhythm, normal heart sounds, No murmur Extremity Exam: other (LLE deeply scarred) OBJECTIVE DATA Vital Signs: Vital Signs - 24 hr Temp Pulse Resp BP Pulse Ox 08/24/18 07:38 72 18 97 08/24/18 07:28 97.4 F 74 18 112/66 94 L 08/24/18 05:05 97.4 F 72 12 114/58 94 L 08/24/18 04:00 12 08/24/18 00:24 77 16 97 08/24/18 00:00 98 F 74 16 124/72 96 08/23/18 20:00 98.0 F 81 20 115/65 93 L 08/23/18 18:51 76 20 94 L 08/23/18 16:00 97.6 F 80 20 109/57 94 L 08/23/18 13:18 76 18 08/23/18 12:00 98.1 F 85 20 129/60 94 L Pain Assessment - Last Documented Pain Intensity 0 Pain Scale Used [facility] Intake and Output: Intake & Output 08/21/18 08/22/18 08/23/18 08/24/18 11:59 11:59 11:59 11:59 Intake Total 2271 6974 Output Total 500 950 Balance 1771 2734 Weight 114.2 kg Lab Results: Accuchecks Date 08/23/18 Date 08/23/18 Date 08/23/18 Time 22:00 Time 16:30 Time 12:15 Accucheck Value: 399 Accucheck Value: 213 Accucheck Value: 248 Lab Results-Last 24 Hours 08/23/18 08/24/18 08/24/18 Range/Units 15:20 05:45 05:45 WBC 2.0 L 1.3 L* (4.0-10.5) K/mm3 RBC 3.96 L 3.67 L (4.1-5.4) M/mm3 Hgb 10.5 L 9.5 L (12.0-16.0) gm/dl Hct 33.6 L 30.6 L (35-47) % MCV 84.8 83.4 (78-100) fl MCH 26.5 25.8 L (26-32) pg MCHC 31.3 L 31.0 L (32-36) g/dl RDW 17.0 H 16.2 H (11.5-14.0) % Plt Count 66 L 54 L (150-450) K/mm3 MPV 8.8 9.6 H (6-9.5) fl Segmented Neutrophils 68 H 79 H (36.0-66.0) % Band Neutrophils 8 H 10 H (0.0-2.0) % Lymphocytes (Manual) 16 L 10 L (24-44) % Monocytes (Manual) 6 (0.0-12.0) % Eosinophils (Manual) 2 (0.00-3.0) % Basophils (Manual) 1 (0.0-1.0) % Hypochromia 1+ 1+ Platelet Estimate DECREASED DECREASED (NORMAL) RBC Morphology ABNORMAL Poikilocytosis 1+ 1+ Anisocytosis 1+ 2+ Sodium 136 L (137-145) mmol/L Potassium 3.9 (3.5-5.1) mmol/L Chloride 103 (98-107) mmol/L Carbon Dioxide 23 (22-30) mmol/L Anion Gap 14.3 (5-15) MEQ/L BUN 17 (7-17) mg/dL Creatinine 0.54 (0.52-1.04) mg/dL Estimated GFR > 60.0 ML/MIN Glucose 352 H (74-106) mg/dL Calcium 8.0 L (8.4-10.2) mg/dL Radiology Exams: Radiology Procedures Category Date Time Status CHEST 1 VIEW (PORTABLE) Routine Exams 08/22/18 16:10 Completed CHEST 2 VIEWS (PA AND LAT) Routine Exams 08/23/18 15:33 Completed Assessment/Plan (1) Pneumonia Current Visit: Yes Status: Acute Qualifiers: Pneumonia type: due to unspecified organism Laterality: left Lung location: lower lobe of lung Qualified Code(s): J18.1 - Lobar pneumonia, unspecified organism Assessment & Plan: Her lung sounds are better today. She doesn't endorse feeling much better but she certainly looks and acts better than she did yesterday. Continue zithromax and rocephin (day #3). I will stop the solu-medrol since it didn't seem to help and she is already quite immunocompromise. We had previously discussed possible tap by Dr. Francisco if fluid was worse in the lung but yesterday's CXR was improved - Dr. Lim to re-eval again in the morning. Code(s): J18.9 - PNEUMONIA, UNSPECIFIED ORGANISM (2) Pleural effusion Current Visit: Yes Status: Resolved Assessment & Plan: on XR Code(s): J90 - PLEURAL EFFUSION, NOT ELSEWHERE CLASSIFIED (3) Immunocompromised Current Visit: Yes Status: Chronic Assessment & Plan: WBC 1.3 this morning - in reverse isolation since yesterday. Code(s): D84.9 - IMMUNODEFICIENCY, UNSPECIFIED (4) Colon cancer Current Visit: Yes Status: Chronic Qualifiers: Colon location: unspecified part of colon Qualified Code(s): C18.9 - Malignant neoplasm of colon, unspecified (5) Diabetes Current Visit: Yes Status: Chronic Qualifiers: Diabetes mellitus type: type 2 Diabetes mellitus intermediate insulin use: without intermediate use Diabetes mellitus complication status: without complication Qualified Code(s): E11.9 - Type 2 diabetes mellitus without complications Assessment & Plan: stopping the solumedrol; BS should decrease. Has ss insulin. Code(s): E11.9 - TYPE 2 DIABETES MELLITUS WITHOUT COMPLICATIONS (6) Hernia of anterior abdominal wall Current Visit: Yes Status: Chronic Code(s): K43.9 - VENTRAL HERNIA WITHOUT OBSTRUCTION OR GANGRENE
[2018-08-24] MEDS: Zithromax 500 MG/ 250 ML NaCl Premix 500 MG/250 ML IVPB IV SCH (11:01)
[2018-08-24] MEDS: ZOCOR 20MG PO SCH (22:01)
[2018-08-25] MEDS: DUONEB 0.5-3 MG/3 ml Neb IH SCH ×4 (00:10→19:06)
[2018-08-25] MEDS: Sodium Chloride 0.9% 1000 ML 1,000 ML IV SCH ×2 (02:12→14:42)
[2018-08-25] MEDS: NORCO 5/325 MG PO PRN ×3 (02:12→22:04)
[2018-08-25] MEDS: NovoLOG Insulin SQ PRN ×2 (08:46→13:24)
[2018-08-25] MEDS: Novolin 70/30 SQ SCH ×2 (08:46→22:00)
[2018-08-25] MEDS: Effexor XR 75 MG PO SCH (10:34)
[2018-08-25] MEDS: NEURONTIN 300 MG PO SCH ×2 (10:34→21:52)
[2018-08-25] MEDS: ENOXAPARIN SODIUM SQ SCH (10:34)
[2018-08-25] MEDS: Ditropan XL 5 MG PO SCH ×2 (10:34→21:52)
[2018-08-25] MEDS: Zestril 20 MG PO SCH (10:34)
[2018-08-25] MEDS: Acidophilus TABLET PO SCH (10:34)
[2018-08-25] MEDS: THERAGRAN MULTIVITAMIN PO SCH (10:34)
[2018-08-25] MEDS: PROZAC 10 MG PO SCH (10:34)
[2018-08-25] MEDS: ROCEPHIN 1 Gm-D5w 50 ml Bag** 1 G/50 ML IVPB IV SCH (10:34)
--- NOTE | 2018-08-25 10:53 | XRAY ---
Indication: Short of breath and cough. Possible pneumonia. History colon carcinoma. Multiple contiguous axial images obtained through the chest using 80 cc Isovue 370 contrast. Comparison: June 12, 2018. Again there are multiple bilateral calcified/noncalcified pulmonary nodules. Again largest is in the medial right posterior gutter measuring 2 cm in greatest axial dimension, previously 1.6 cm. Next largest in the posterior right lower lobe measuring 1.7 cm, previously 1.3 cm. No new pulmonary mass/nodule or infiltrate. New tiny bibasilar effusions. Heart is not enlarged with stable right Port-A-Cath. Aorta again normal in course and caliber. New 1.4 x 2.4 cm right hilar and 1.4 x 2.4 cm subcarinal adenopathy. Stable small hiatal hernia. Bony thorax intact again with flowing osteophytes throughout the spine. Limited upper abdomen again demonstrates partially visualized large ventral hernia with large ascites, partial resection of the right lobe of the liver, and 2.5 cm enhancing hepatic lesion near the dome of the diaphragm. Slightly enlarging 18.1 cm splenomegaly. Impression: 1. Interval enlarging multiple bilateral calcified/noncalcified nodules again worrisome for metastasis. 2. New right hilar and subcarinal lymphadenopathy also concerning for metastasis. 3. New tiny bibasilar effusions and small hiatal hernia. 4. Upper abdomen again demonstrates large ventral hernia with ascites, enhancing hepatic lesion, and splenomegaly. CT DI 31.20
[2018-08-25] MEDS: Zithromax 500 MG/ 250 ML NaCl Premix 500 MG/250 ML IVPB IV SCH (11:21)
[2018-08-25] MEDS: ZOCOR 20MG PO SCH (21:52)
[2018-08-26] MEDS: DUONEB 0.5-3 MG/3 ml Neb IH SCH ×4 (00:34→19:31)
[2018-08-26] MEDS: Sodium Chloride 0.9% 1000 ML 1,000 ML IV SCH ×2 (02:59→15:31)
[2018-08-26 06:07] LABS: Hemoglobin 8.8 gm/dl (12.0-16.0); Mean Cell Volume 86.3 fl (78-100); Mean Corpuscular Hgb Concent. 30.3 g/dl (32-36); Mean Platelet Volume 9.7 fl (6-9.5); Platelet Count 60 K/mm3 (150-450); Red Blood Count 3.36 M/mm3 (4.1-5.4); Red Cell Distribution Width 16.5 % (11.5-14.0); White Blood Count 2.7 K/mm3 (4.0-10.5)
[2018-08-26 06:18] LABS: Mean Corpuscular Hemoglobin 26.1 pg (26-32)
[2018-08-26 06:25] LABS: ANION GAP 11.3 MEQ/L (5-15); BLOOD UREA NITROGEN 18 mg/dL (7-17); CHLORIDE 109 mmol/L (98-107); Calcium 8.4 mg/dL (8.4-10.2); Carbon Dioxide 26 mmol/L (22-30); Creatinine 1 0.57 mg/dL (0.52-1.04); Glucose 167 mg/dL (74-106); Potassium 4.3 mmol/L (3.5-5.1); SODIUM 142 mmol/L (137-145)
[2018-08-26 06:27] LABS: Lymphocytes 18 % (24-44); Monocyte 2 % (0.0-12.0); Neutrophils 80 % (36.0-66.0); Total Cells Counted 100
[2018-08-26 06:28] LABS: ANISOCYTOSIS 1+; Hypochromia 1+; Platelet Estimate DECREASED (NORMAL); Poikilocytosis 1+
[2018-08-26] MEDS: Novolin 70/30 SQ SCH ×2 (07:54→21:35)
--- NOTE | 2018-08-26 08:54 | PCM.NOTE ---
Date and Time: 08/26/18 0845 Subjective Assessment: She states she is feeling "about the same." Still having cough. Sometimes feels she has subjective fevers. She is more short of breath since admission. Tolerating po fine. Her CT yesterday (chest) showed enlarging nodules and tiny bibasilar effusions both worrisome for metastatic involvement. Apparenlty Dr. Cota's office has already called her to discuss these results. - Review of Systems Constitutional: No Fever Respiratory: Cough, Short Of Breath Objective Exam General Appearance: no apparent distress, alert Neurologic Exam: oriented x 3, cooperative Skin Exam: normal color, warm, dry, No rash Respiratory Exam: normal breath sounds, crackles/rales (bibasilar crackles, R>L) , No rhonchi, No wheezing Cardiovascular Exam: regular rate/rhythm, normal heart sounds, No murmur Gastrointestinal/Abdomen Exam: soft, normal bowel sounds, tenderness ( epigastrum. there is a herniation that is soft. ventral hernia near umbilicus is soft.) Extremity Exam: swelling (trace pretibial edema bilat) OBJECTIVE DATA Vital Signs: Vital Signs - 24 hr Temp Pulse Resp BP Pulse Ox 08/26/18 07:36 97.6 F 75 18 142/74 98 08/26/18 04:50 97.6 F 78 18 124/68 96 08/26/18 01:00 98.2 F 94 H 18 113/63 94 L 08/26/18 00:34 97 08/26/18 00:00 16 08/25/18 20:37 97.3 F 82 16 109/71 99 08/25/18 19:06 86 15 98 08/25/18 16:49 98.1 F 79 18 97/52 96 08/25/18 13:00 98.1 F 81 18 129/60 95 08/25/18 12:53 80 18 96 Pain Assessment - Last Documented Pain Intensity 0 Pain Scale Used 0-10 Pain Scale Intake and Output: Intake & Output 08/23/18 08/24/18 08/25/18 08/26/18 11:59 11:59 11:59 11:59 Intake Total 2271 4304 3743 3086 Output Total 500 950 600 800 Balance 1771 3354 3143 2286 Weight 114.2 kg 114.2 kg Lab Results: Accuchecks Date 08/25/18 Time 22:00 Accucheck Value: 154 Accucheck Value: 187 Accucheck Value: 268 Lab Results-Last 24 Hours 08/25/18 08/26/18 08/26/18 Range/Units 13:20 05:55 05:55 WBC 2.7 L (4.0-10.5) K/mm3 RBC 3.36 L (4.1-5.4) M/mm3 Hgb 8.8 L (12.0-16.0) gm/dl Hct 29.0 L (35-47) % MCV 86.3 (78-100) fl MCH 26.1 (26-32) pg MCHC 30.3 L (32-36) g/dl RDW 16.5 H (11.5-14.0) % Plt Count 60 L (150-450) K/mm3 MPV 9.7 H (6-9.5) fl Segmented Neutrophils 80 H (36.0-66.0) % Lymphocytes (Manual) 18 L (24-44) % Monocytes (Manual) 2 (0.0-12.0) % Hypochromia 1+ Platelet Estimate DECREASED (NORMAL) RBC Morphology ABNORMAL Poikilocytosis 1+ Anisocytosis 1+ Sodium 142 (137-145) mmol/L Potassium 4.3 (3.5-5.1) mmol/L Chloride 109 H (98-107) mmol/L Carbon Dioxide 26 (22-30) mmol/L Anion Gap 11.3 (5-15) MEQ/L BUN 18 H (7-17) mg/dL Creatinine 0.57 (0.52-1.04) mg/dL Estimated GFR > 60.0 ML/MIN Glucose 167 H (74-106) mg/dL Hemoglobin A1c 7.17 H (4.5-6.0) % Calcium 8.4 (8.4-10.2) mg/dL Radiology Exams: Radiology Procedures Category Date Time Status CHEST WITH CONTRAST [CT] Routine Exams 08/25/18 08:41 Completed ECHO W/2D AND DOPPLER [US] Routine Exams 08/26/18 Ordered Assessment/Plan (1) Pneumonia Current Visit: Yes Status: Acute Qualifiers: Pneumonia type: due to unspecified organism Laterality: left Lung location: lower lobe of lung Qualified Code(s): J18.1 - Lobar pneumonia, unspecified organism Assessment & Plan: With her immunocompromised status and symptoms, treating for pneumonia. On IV zithromax and rocephin, day #5 today. Code(s): J18.9 - PNEUMONIA, UNSPECIFIED ORGANISM (2) RODRIGEZ (dyspnea on exertion) Current Visit: Yes Status: Acute Assessment & Plan: On her CT chest, the PE protocol was not done but when I called Dr. Francisco he did say that there is no PE in the main pulmonary arteries or in the L & R branches. Echo ordered for today. I will discuss with Dr. Cota whether she should have a repeat CT with PE protocol or not. Will not order d-dimer as it will be elevated in light of her cancer. Renal function is great. Code(s): R06.09 - OTHER FORMS OF DYSPNEA (3) Pulmonary nodules Current Visit: Yes Status: Acute Assessment & Plan: Will discuss with Dr. Cota (4) Immunocompromised Current Visit: Yes Status: Chronic Code(s): D84.9 - IMMUNODEFICIENCY, UNSPECIFIED (5) Colon cancer Current Visit: Yes Status: Chronic Qualifiers: Colon location: unspecified part of colon Qualified Code(s): C18.9 - Malignant neoplasm of colon, unspecified (6) Diabetes Current Visit: Yes Status: Chronic Qualifiers: Diabetes mellitus type: type 2 Diabetes mellitus fci insulin use: without intermediate school teacher use Diabetes mellitus complication status: without complication Qualified Code(s): E11.9 - Type 2 diabetes mellitus without complications Code(s): E11.9 - TYPE 2 DIABETES MELLITUS WITHOUT COMPLICATIONS (7) Hernia of anterior abdominal wall Current Visit: Yes Status: Chronic Code(s): K43.9 - VENTRAL HERNIA WITHOUT OBSTRUCTION OR GANGRENE
[2018-08-26] MEDS: PROZAC 10 MG PO SCH (09:58)
[2018-08-26] MEDS: Zestril 20 MG PO SCH (09:58)
[2018-08-26] MEDS: NEURONTIN 300 MG PO SCH ×2 (09:58→21:35)
[2018-08-26] MEDS: ENOXAPARIN SODIUM SQ SCH (09:58)
[2018-08-26] MEDS: Effexor XR 75 MG PO SCH (09:58)
[2018-08-26] MEDS: THERAGRAN MULTIVITAMIN PO SCH (09:58)
[2018-08-26] MEDS: Acidophilus TABLET PO SCH (09:58)
[2018-08-26] MEDS: Ditropan XL 5 MG PO SCH ×2 (09:58→21:35)
[2018-08-26] MEDS: ROCEPHIN 1 Gm-D5w 50 ml Bag** 1 G/50 ML IVPB IV SCH (09:58)
[2018-08-26] MEDS: NORCO 5/325 MG PO PRN ×2 (10:45→21:37)
[2018-08-26] MEDS: Zithromax 500 MG/ 250 ML NaCl Premix 500 MG/250 ML IVPB IV SCH (11:30)
[2018-08-26] MEDS: ZOCOR 20MG PO SCH (21:36)
[2018-08-26] MEDS: NovoLOG Insulin SQ PRN (21:36)
[2018-08-27] MEDS: DUONEB 0.5-3 MG/3 ml Neb IH SCH ×4 (01:09→19:38)
[2018-08-27] MEDS ORDERED: MORPHINE SULFATE 4 MG INJ ONE (03:20)
[2018-08-27] MEDS: Sodium Chloride 0.9% 1000 ML 1,000 ML IV SCH ×2 (04:06→16:51)
[2018-08-27 06:08] LABS: Hematocrit 31.1 % (35-47); Hemoglobin 9.2 gm/dl (12.0-16.0); Mean Cell Volume 86.4 fl (78-100); Mean Corpuscular Hgb Concent. 29.6 g/dl (32-36); Mean Platelet Volume 9.3 fl (6-9.5); Platelet Count 68 K/mm3 (150-450); Red Cell Distribution Width 16.9 % (11.5-14.0); White Blood Count 2.4 K/mm3 (4.0-10.5)
[2018-08-27 06:12] LABS: Mean Corpuscular Hemoglobin 25.5 pg (26-32)
[2018-08-27 06:25] LABS: ANION GAP 10.2 MEQ/L (5-15); BLOOD UREA NITROGEN 13 mg/dL (7-17); CHLORIDE 110 mmol/L (98-107); Calcium 8.6 mg/dL (8.4-10.2); Carbon Dioxide 26 mmol/L (22-30); Creatinine 1 0.55 mg/dL (0.52-1.04); Glucose 136 mg/dL (74-106); Potassium 4.3 mmol/L (3.5-5.1); SODIUM 142 mmol/L (137-145)
[2018-08-27 07:47] LABS: Slide Review YES
[2018-08-27] MEDS: Novolin 70/30 SQ SCH ×2 (08:29→21:40)
--- NOTE | 2018-08-27 08:42 | XRAY ---
Indication: Elevated d-dimer. History colon carcinoma. Multiple contiguous axial images obtained through the chest using 100 cc Isovue 370 contrast and PE protocol. Comparison: Conventional CT chest exam one day earlier. There is good opacification of the pulmonary arteries to include the lobar and segmental branches. No filling defect or pulmonary embolus. Heart is not enlarged again with right-sided Port-A-Cath. Aorta is normal in course and caliber. Stable subcarinal/right hilar adenopathy and small hiatal hernia. Examination of the lung parenchyma demonstrates stable multiple bilateral pulmonary nodules again largest in the right posterior gutter. Interval increasing small bilateral effusions, left greater than right. No infiltrate. Bony thorax intact again with flowing osteophytes throughout the spine. Limited upper abdomen demonstrates again partially visualized large ventral hernia with large ascites, partial resection right lobe liver, enhancing hepatic lesion near the dome of the diaphragm, and splenomegaly. Impression: 1. Negative pulmonary embolus. 2. Stable multiple pulmonary nodules, right hilar/subcarinal lymphadenopathy, and enhancing hepatic lesion worrisome for metastasis. 3. Slight increasing small bilateral effusions. 4. Stable hiatal hernia, large ventral hernia with large ascites, and splenomegaly. CT DI 23.68
--- NOTE | 2018-08-27 09:11 | PCM.NOTE ---
Date and Time: 08/27/18908 Subjective Assessment: patient still feels the same, coughing and is short winded with exertion. she has poor exercise tolerance and energy level Objective Exam General Appearance: obese Neurologic Exam: alert, oriented x 3 Skin Exam: normal color, warm, dry Respiratory Exam: rhonchi Cardiovascular Exam: regular rate/rhythm, normal heart sounds Gastrointestinal/Abdomen Exam: soft, No tenderness, No mass Extremity Exam: normal inspection, normal range of motion OBJECTIVE DATA Vital Signs: Vital Signs - 24 hr Temp Pulse Resp BP BP Pulse Ox 08/27/18 07:12 78 16 98 08/27/18 04:00 97.5 F 81 16 124/70 95 08/27/18 01:15 86 18 99 08/27/18 00:00 97.7 F 85 14 126/67 97 08/26/18 21:00 97.5 F 81 17 125/69 98 08/26/18 19:31 85 20 100 08/26/18 15:43 97.6 F 93 H 18 128/68 97 08/26/18 13:15 94 H 12 94 L 08/26/18 12:08 98.1 F 92 H 18 138/69 98 Pain Assessment - Last Documented Pain Intensity 3 Pain Scale Used 0-10 Pain Scale Intake and Output: Intake & Output 08/24/18 08/25/18 08/26/18 08/27/18 11:59 11:59 11:59 11:59 Intake Total 4304 3743 3566 2647 Output Total 950 600 800 Balance 3354 3143 2766 2647 Weight 114.2 kg Lab Results: Accuchecks Accucheck Value: 221 Accucheck Value: 190 Accucheck Value: 170 Lab Results-Last 24 Hours 08/26/18 08/27/18 08/27/18 Range/Units 06:00 05:36 05:36 WBC 2.4 L (4.0-10.5) K/mm3 RBC 3.60 L (4.1-5.4) M/mm3 Hgb 9.2 L (12.0-16.0) gm/dl Hct 31.1 L (35-47) % MCV 86.4 (78-100) fl MCH 25.5 L (26-32) pg MCHC 29.6 L (32-36) g/dl RDW 16.9 H (11.5-14.0) % Plt Count 68 L (150-450) K/mm3 MPV 9.3 (6-9.5) fl D-Dimer 5474 H* (215-500) ng/mL Sodium 142 (137-145) mmol/L Potassium 4.3 (3.5-5.1) mmol/L Chloride 110 H (98-107) mmol/L Carbon Dioxide 26 (22-30) mmol/L Anion Gap 10.2 (5-15) MEQ/L BUN 13 (7-17) mg/dL Creatinine 0.55 (0.52-1.04) mg/dL Estimated GFR > 60.0 ML/MIN Glucose 136 H (74-106) mg/dL Calcium 8.6 (8.4-10.2) mg/dL Slides for Path Review YES Radiology Exams: Radiology Procedures Category Date Time Status CHEST WITH CONTRAST [CT] Routine Exams 08/25/18 08:41 Completed CHEST WITH CONTRAST [CT] Routine Exams 08/26/18 13:15 Completed ECHO W/2D AND DOPPLER [US] Routine Exams 08/26/18 10:46 Taken Assessment/Plan (1) Pneumonia Current Visit: Yes Status: Acute Qualifiers: Pneumonia type: due to unspecified organism Laterality: left Lung location: lower lobe of lung Qualified Code(s): J18.1 - Lobar pneumonia, unspecified organism Assessment & Plan: no improvement with current regimen, will start zosyn, continue nebs and will follow. discussed ct results Code(s): J18.9 - PNEUMONIA, UNSPECIFIED ORGANISM (2) Pulmonary nodules Current Visit: Yes Status: Acute Assessment & Plan: will f/u with Dr Cota on September 17, unfortunately ct was not done PE protocol as ordered so is being repeated. (3) Colon cancer Current Visit: Yes Status: Chronic Qualifiers: Colon location: unspecified part of colon Qualified Code(s): C18.9 - Malignant neoplasm of colon, unspecified (4) Pleural effusion Current Visit: Yes Status: Resolved Code(s): J90 - PLEURAL EFFUSION, NOT ELSEWHERE CLASSIFIED (5) High risk for readmission Current Visit: Yes Status: Acute Code(s): Z91.89 - OTH PERSONAL RISK FACTORS , NOT ELSEWHERE CLASSIFIED
[2018-08-27] MEDS: PROZAC 10 MG PO SCH (09:54)
[2018-08-27] MEDS: THERAGRAN MULTIVITAMIN PO SCH (09:54)
[2018-08-27] MEDS: NEURONTIN 300 MG PO SCH ×2 (09:54→21:40)
[2018-08-27] MEDS: Effexor XR 75 MG PO SCH (09:54)
[2018-08-27] MEDS: Ditropan XL 5 MG PO SCH ×2 (09:55→21:40)
[2018-08-27] MEDS: Acidophilus TABLET PO SCH (09:55)
[2018-08-27] MEDS: Zestril 20 MG PO SCH (09:55)
[2018-08-27] MEDS: ENOXAPARIN SODIUM SQ SCH (09:56)
[2018-08-27] MEDS: NORCO 5/325 MG PO PRN (10:01)
[2018-08-27] MEDS: Zosyn 3.375GM/100 Ml D5W 3.375 GM/100 ML IVPB IV SCH ×2 (11:02→19:38)
[2018-08-27] MEDS: NovoLOG Insulin SQ PRN (12:50)
[2018-08-27] MEDS: ZOCOR 20MG PO SCH (21:40)
[2018-08-28] MEDS: Zosyn 3.375GM/100 Ml D5W 3.375 GM/100 ML IVPB IV SCH ×2 (00:02→05:24)
[2018-08-28] MEDS: DUONEB 0.5-3 MG/3 ml Neb IH SCH ×2 (01:26→07:45)
[2018-08-28] MEDS: NORCO 5/325 MG PO PRN (01:35)
[2018-08-28] MEDS: Sodium Chloride 0.9% 1000 ML 1,000 ML IV SCH (05:36)
[2018-08-28 05:52] LABS: Hematocrit 28.8 % (35-47); Hemoglobin 8.7 gm/dl (12.0-16.0); Mean Cell Volume 86.7 fl (78-100); Mean Corpuscular Hemoglobin 26.2 pg (26-32); Mean Corpuscular Hgb Concent. 30.2 g/dl (32-36); Mean Platelet Volume 9.8 fl (6-9.5); Platelet Count 81 K/mm3 (150-450); Red Blood Count 3.32 M/mm3 (4.1-5.4); Red Cell Distribution Width 16.9 % (11.5-14.0); White Blood Count 2.4 K/mm3 (4.0-10.5)
[2018-08-28 06:06] LABS: BLOOD UREA NITROGEN 11 mg/dL (7-17); CHLORIDE 110 mmol/L (98-107); Carbon Dioxide 26 mmol/L (22-30); Creatinine 1 0.55 mg/dL (0.52-1.04); Glucose 146 mg/dL (74-106); SODIUM 141 mmol/L (137-145)
[2018-08-28 06:08] LABS: Potassium 3.5 mmol/L (3.5-5.1)
[2018-08-28 06:18] LABS: ANION GAP 8.5 MEQ/L (5-15)
[2018-08-28 07:15] VITALS: BP 132/67
--- NOTE | 2018-08-28 07:18 | PCM.DS ---
Discharge Summary Date of Admission: 08/24/18 09:42 Admitting Physician: PEARL RANGEL Primary Care Provider: PEARL RANGEL Allergies Allergies hydrocodone Adverse Reaction (Mild, Verified 02/12/18 20:07) Itching adhesive tape Adverse Reaction (Verified 02/12/18 20:07) Hospital Summary - Hospital Course Hospital Course: patient was admitted from office with cough, weakness and shortness of breath clinically consistent with pneumonia. has known metastatic disease. ct showed interval enlargement of nodules and new adenopathy. she has improved with iv antibiotics, no oxygen therapy required, no fever. wbc was low initially but has improved with treatment. - Vitals & Intake/Output Vital Signs: Vital Signs Temperature 97.9 F 08/28/18 04:00 Pulse Rate 72 08/28/18 04:00 Respiratory Rate 18 08/28/18 04:00 Blood Pressure 126/67 08/28/18 04:00 O2 Sat by Pulse Oximetry 97 08/28/18 04:00 Intake & Output: Intake & Output 08/25/18 08/26/18 08/27/18 08/28/18 11:59 11:59 11:59 11:59 Intake Total 3743 3566 3127 3278 Output Total 600 800 450 Balance 3143 4376 3127 2828 Weight 114.2 kg - Lab Result Diagrams: 08/28/18 05:40 08/28/18 05:40 Lab Results-Last 24 Hrs: Accuchecks Date 08/27/18 Date 08/27/18 Date 08/27/18 Time 16:30 Time 11:30 Time 07:30 Accucheck Value: 196 Accucheck Value: 191 Accucheck Value: 217 Accucheck Value: 136 Lab Results-Last 24 Hours 08/27/18 08/28/18 08/28/18 Range/Units 05:36 05:40 05:40 WBC 2.4 L (4.0-10.5) K/mm3 RBC 3.32 L (4.1-5.4) M/mm3 Hgb 8.7 L (12.0-16.0) gm/dl Hct 28.8 L (35-47) % MCV 86.7 (78-100) fl MCH 26.2 (26-32) pg MCHC 30.2 L (32-36) g/dl RDW 16.9 H (11.5-14.0) % Plt Count 81 L (150-450) K/mm3 MPV 9.8 H (6-9.5) fl Sodium 141 (137-145) mmol/L Potassium 3.5 (3.5-5.1) mmol/L Chloride 110 H (98-107) mmol/L Carbon Dioxide 26 (22-30) mmol/L Anion Gap 8.5 (5-15) MEQ/L BUN 11 (7-17) mg/dL Creatinine 0.55 (0.52-1.04) mg/dL Estimated GFR > 60.0 ML/MIN Glucose 146 H (74-106) mg/dL Calcium 8.0 L (8.4-10.2) mg/dL Slides for Path Review YES Micro Results-Entire Visit: Microbiology 08/22/18 04:22 Blood Culture Gram Stain - Final Blood Not Reportable Blood Culture - Final NO GROWTH 08/22/18 04:22 Blood Culture Gram Stain - Final Blood Not Reportable Blood Culture - Final NO GROWTH Accuchecks Date 08/27/18 Date 08/27/18 Date 08/27/18 Time 16:30 Time 11:30 Time 07:30 Accucheck Value: 196 Accucheck Value: 191 Accucheck Value: 217 Accucheck Value: 136 - Radiology Exams Ordered Rad Exams-Entire Visit: Radiology Procedures Category Date Time Status CHEST WITH CONTRAST [CT] Routine Exams 08/26/18 13:15 Completed ECHO W/2D AND DOPPLER [US] Routine Exams 08/26/18 10:46 Taken - Procedures and Test Procedures and Tests throughout Hospitalization: Therapy Orders & Screens 08/22/18 16:10 Respiratory Nebulizer Q6H Comment: DUONEBS INH Q6H Diagnosis: PNE 08/22/18 16:50 Respiratory Therapy Assessment DAILY Comment: Diagnosis: PNE 08/22/18 16:51 Peak Expiratory Flow Rate ONCE Comment: Reason For Exam: Diagnosis: PNE Discharge Exam General Appearance: no apparent distress, obese Neurologic Exam: alert, oriented x 3 Skin Exam: normal color, warm, dry Respiratory Exam: rhonchi, No respiratory distress, No accessory muscle use, No prolonged expirations Cardiovascular Exam: regular rate/rhythm, normal heart sounds Gastrointestinal/Abdomen Exam: soft, No tenderness, No mass Extremity Exam: other (scarring and atrophy to left lower leg) Final Diagnosis/Problem List - Final Discharge Diagnosis/Problem (1) Pneumonia Current Visit: Yes Status: Acute Assessment & Plan: clinically present, has improved with therapy. will discharge home on levaquin, patient to f/u with Dr Cota regarding ct results and further treatment. Code(s): J18.9 - PNEUMONIA, UNSPECIFIED ORGANISM (2) Pulmonary nodules Current Visit: Yes Status: Acute (3) Colon cancer Current Visit: Yes Status: Chronic (4) Pleural effusion Current Visit: Yes Status: Resolved Code(s): J90 - PLEURAL EFFUSION, NOT ELSEWHERE CLASSIFIED (5) High risk for readmission Current Visit: Yes Status: Acute Code(s): Z91.89 - OTH PERSONAL RISK FACTORS , NOT ELSEWHERE CLASSIFIED - Discharge Disposition: Home, Self-Care Condition: Stable Prescriptions: New Levofloxacin [Levaquin] 500 mg PO CLARIFY #7 tablet Albuterol Common Canister [Proventil Common Canister] 2 puff IH Q4- 6HPRN PRN #1 canister PRN Reason: Cough Continue Oxybutynin Chloride Xl 5 mg [Ditropan XL 5 MG] 5 mg PO BID Venlafaxine HCl ER 75 mg [Effexor XR 75 MG] 75 mg PO DAILY Gabapentin 300 mg PO BID Atorvastatin Calcium [Lipitor 40Mg] 40 mg PO DAILY L.acidoph,Paracasei, B.lactis [Probiotic] 1 tablet PO DAILY Multivitamin [Multivitamins] 1 each PO DAILY Fluoxetine HCl 10 mg [Prozac 10 mg] 10 mg PO DAILY Lisinopril 10 mg [Zestril 10 MG] 20 mg PO DAILY Insulin NPH Hum/Reg Insulin Hm [Relion Novolin 70-30 Vial] 10 units SQ QAM Insulin NPH/Reg 70/30 [Novolin 70/30] 5 units SQ HS Follow up with: PEARL RANGEL MD [Primary Care Provider] - 1 Week
[2018-08-28 08:05] VITALS: PULSE 74; O2SAT 96
[2018-08-28] MEDS: Novolin 70/30 SQ SCH ×2 (08:20→08:27)
[2018-08-28 08:28] LABS: BAND 1 % (0.0-2.0); Eosinophil 4 % (0.00-3.0); Lymphocytes 21 % (24-44); Metamyelocyte 1 %; Neutrophils 73 % (36.0-66.0); Platelet Estimate DECREASED (NORMAL); Total Cells Counted 100
--- NOTE | 2018-08-28 10:53 | ECHO ---
Transthoracic echocardiographic examination and color Doppler was done on 08/26/2018. INDICATION: Shortness of breath. IMPRESSION: 1) NO DEFINITE REGIONAL WALL MOTION ABNORMALITY. ESTIMATED GLOBAL LEFT VENTRICULAR EJECTION FRACTION AROUND 60%. 2) TRACE MITRAL REGURGITATION. 3) TRACE TRICUSPID REGURGITATION. RIGHT VENTRICULAR SYSTOLIC PRESSURE OF 20 MM OF MERCURY. 4) LEFT VENTRICULAR HYPERTROPHY. The left ventricle was not well visualized but this did not show any obvious wall motion abnormality. Estimated global left ventricular ejection fraction is around 60%. There is mild left ventricular hypertrophy. The mitral valve was not well visualized. There appears to be some trace mitral regurgitation. Left atrium appears to be normal. The aortic valve is not well visualized. The peak gradient across the aortic valve is 12 mm of Mercury. The right side chambers appear to be normal. There is trace tricuspid regurgitation. The right ventricular systolic pressure of 20 mm of Mercury.
== END 2018-08-28 09:00 | disposition home or self-care (01) | DRG 194 ==
LOC: MED SURG 09:42 → OBSVTOIN 15:46 → MED SURG 15:46 → INTOOBSV 15:46 → OBSVTOIN 08-24 09:42
PROVIDERS: ADMIT Family Medicine; ATTEND Family Medicine
DX: J18.9 Pneumonia, unspecified organism (principal); C18.9 Malignant neoplasm of colon, unspecified; J90 Pleural effusion, not elsewhere classified; D84.9 Immunodeficiency, unspecified; R53.1 Weakness; R91.8 Other nonspecific abnormal finding of lung field; Z79.899 Other long term (current) drug therapy; E11.9 Type 2 diabetes mellitus without complications; I10 Essential (primary) hypertension; Z86.711 Personal history of pulmonary embolism; R53.83 Other fatigue; R10.13 Epigastric pain; K44.9 Diaphragmatic hernia without obstruction or gangrene; K43.9 Ventral hernia without obstruction or gangrene; R06.00 Dyspnea, unspecified
CPT/HCPCS: 36415; 71045; 71046; 71260; 80048; 80053; 81001; 82962; 83036; 85025; 85027; 85379; 87040; 87631; 93306; 94150; 94640; 94760; G0378; J0456; J0696; J1642; J1650; J1815; J1940; J2270; J2543; J2550; J2920; A9270-GY

== ENCOUNTER 2018-09-02 12:51 | Emergency (ER) | payer MEDICARE ==
--- NOTE | 2018-09-02 13:21 | ERPHSYRPT ---
- History of Present Illness Time Seen by Provider: 09/02/18 13:20 Exam Limitations: no limitations, clinical condition Physician History: 63 y/o morbidly obese white female presents with bilat leg swelling and chronic ventral hernia pain. pt has h/o primary colon cancer with mets to liver and lung. has known intrabd ascites. pt recently discharged from hospital for management of soa and found to have lung mets. pt fairly mobile prior to last hospitalization. since home from discharge, pt has not been mobile. bilateral lower ext with increasing swelling right worse than left. pt has STSG left lower ext. Timing/Duration: day(s) (several days) Severity: mild Associated Symptoms: abdominal pain (mikld), weakness, No nausea, No vomiting, No shortness of breath Allergies/Adverse Reactions: hydrocodone Adverse Reaction (Mild, Verified 09/02/18 13:26) Itching adhesive tape Adverse Reaction (Verified 09/02/18 13:26) Home Medications: Oxybutynin Chloride Xl 5 mg [Ditropan XL 5 MG] 5 mg PO BID 10/13/13 [ History] Gabapentin 300 mg PO BID 10/25/14 [History] Atorvastatin Calcium [Lipitor 40Mg] 40 mg PO DAILY 10/06/15 [History] L.acidoph,Paracasei, B.lactis [Probiotic] 1 tablet PO DAILY 11/24/15 [History] Fluoxetine HCl 10 mg [Prozac 10 mg] 10 mg PO DAILY 04/27/16 [History] Multivitamin [Multivitamins] 1 each PO DAILY 04/27/16 [History] Lisinopril 10 mg [Zestril 10 MG] 20 mg PO DAILY 05/28/16 [History] Insulin NPH Hum/Reg Insulin Hm [Relion Novolin 70-30 Vial] 10 units SQ QAM 08/22 [History] Insulin NPH/Reg 70/30 [Novolin 70/30] 5 units SQ HS 08/22/18 [History] Hx Tetanus, Diphtheria Vaccination/Date Given: Yes Hx Influenza Vaccination/Date Given: No Hx Pneumococcal Vaccination/Date Given: Yes (2016) - Review of Systems Constitutional: No Symptoms Eyes: No Symptoms Ears, Nose, & Throat: No Symptoms Respiratory: No Symptoms Cardiac: No Symptoms Abdominal/Gastrointestinal: Abdominal Pain (mild around ventral hernia) Genitourinary Symptoms: No Symptoms Musculoskeletal: No Symptoms Skin: No Symptoms Neurological: No Symptoms Psychological: No Symptoms Endocrine: No Symptoms Hematologic/Lymphatic: No Symptoms Immunological/Allergic: No Symptoms All Other Systems: Reviewed and Negative - Past Medical History Pertinent Past Medical History: Yes Neurological History: No Pertinent History ENT History: No Pertinent History Cardiac History: No Pertinent History Respiratory History: Lung Cancer Endocrine Medical History: Liver Disease Musculoskeletal History: Other GI Medical History: Colorectal Cancer History: No Pertinent History Psycho-Social History: No Pertinent History Female Reproductive Disorders: No Pertinent History Other Medical History: HX OF MRSA. COLON CANCER,chemo tx. liver cancer-- PARTIAL HEPATECTOMY 60 % - Past Surgical History Past Surgical History: Yes Neuro Surgical History: No Pertinent History Cardiac: No Pertinent History Respiratory: No Pertinent History Gastrointestinal: No Pertinent History, Bowel Surgery, Colon Resection Genitourinary: No Pertinent History Musculoskeletal: Joint Replacement, Orthopedic Surgery Female Surgical History: Hysterectomy Other Surgical History: bone removed d/t infection. antibiotic beads left lower leg. PORT PLACED. left knee replaced. PARTIAL HEPATECTOMY 60 % REMOVED 09/25/2015, cyst removed from her back - Social History Smoking Status: Former smoker How long have you smoked: 1 year Exposure to second hand smoke: Yes Drug Use: none Patient Lives Alone: No - Nursing Vital Signs Nursing Vital Signs: Initial Vital Signs Temperature 98.3 F 09/02/18 13:18 Pulse Rate 86 09/02/18 13:18 Respiratory Rate 18 09/02/18 13:18 Blood Pressure 158/80 09/02/18 13:18 O2 Sat by Pulse Oximetry 98 09/02/18 13:18 Pain Scale Pain Intensity 6 - Physical Exam General Appearance: mild distress, alert, anxiety Eye Exam: PERRL/EOMI Ears, Nose, Throat Exam: normal ENT inspection, moist mucous membranes Neck Exam: normal inspection, non-tender, supple, full range of motion Respiratory Exam: normal breath sounds, lungs clear, airway intact, No chest tenderness, No respiratory distress Cardiovascular Exam: regular rate/rhythm, normal heart sounds, normal peripheral pulses Gastrointestinal/Abdomen Exam: soft, normal bowel sounds, tenderness (mild around large ventral hernia), No guarding, No rebound Pelvic Exam: not done Rectal Exam: not done Back Exam: normal inspection, normal range of motion, No CVA tenderness, No vertebral tenderness Extremity Exam: normal inspection, normal range of motion, pelvis stable Neurologic Exam: alert, oriented x 3, cooperative, seniour insight manager II-XII nml as tested Skin Exam: normal color, warm, dry Lymphatic Exam: No adenopathy SpO2 Interpretation: normal O2 Delivery: Room Air - Course Nursing assessment & vital signs reviewed: Yes Ordered Tests: Active Orders 24 hr Category Date Time Status ABDOMEN AND PELVIS W/0 CONTRAS [CT] Stat Exams 09/02/18 13:55 Completed VENOUS BILATERAL EXTREMITY [US] Stat Exams 09/02/18 13:56 Completed AMYLASE Stat Lab 09/02/18 14:14 Completed CBC W DIFF Stat Lab 09/02/18 14:14 Completed CMP Stat Lab 09/02/18 14:14 Completed LIPASE Stat Lab 09/02/18 14:14 Completed Manual Differential NC Stat Lab 09/02/18 14:14 Completed Lab/Rad Data: Laboratory Result Diagrams 09/02/18 14:14 09/02/18 14:14 Laboratory Results 09/02/18 09/02/18 Range/Units 14:14 14:14 WBC 3.4 L (4.0-10.5) K/mm3 RBC 3.88 L (4.1-5.4) M/mm3 Hgb 10.3 L (12.0-16.0) gm/dl Hct 33.3 L (35-47) % MCV 85.8 (78-100) fl MCH 26.5 (26-32) pg MCHC 30.9 L (32-36) g/dl RDW 17.6 H (11.5-14.0) % Plt Count 94 L (150-450) K/mm3 MPV 9.3 (6-9.5) fl Gran % 71.5 H (36.0-66.0) % Lymphocytes % 13.5 L (24.0-44.0) % Monocytes % 12.6 H (0.0-12.0) % Eosinophils % 2.1 (0.00-5.0) % Basophils % 0.3 (0.0-0.4) % Absolute Neutrophils 2.7 (1.4-6.9) Segmented Neutrophils 75 H (36.0-66.0) % Band Neutrophils 3 H (0.0-2.0) % Lymphocytes (Manual) 10 L (24-44) % Monocytes (Manual) 8 (0.0-12.0) % Eosinophils (Manual) 4 H (0.00-3.0) % Sodium 138 (137-145) mmol/L Potassium 4.2 (3.5-5.1) mmol/L Chloride 104 (98-107) mmol/L Carbon Dioxide 29 (22-30) mmol/L Anion Gap 9.3 (5-15) MEQ/L BUN 10 (7-17) mg/dL Creatinine 0.62 (0.52-1.04) mg/dL Estimated GFR > 60.0 ML/MIN Glucose 191 H (74-106) mg/dL Calcium 9.1 (8.4-10.2) mg/dL Total Bilirubin 0.80 (0.2-1.3) mg/dL AST 26 (14-36) U/L ALT 19 (0-35) U/L Alkaline Phosphatase 129 H (38-126) U/L Serum Total Protein 6.2 L (6.3-8.2) g/dL Albumin 2.9 L (3.5-5.0) g/dL Amylase < 30 L (30-110) U/L Lipase 30 (23-300) U/L Slides for Path Review YES - Progress Progress: unchanged, re-examined Progress Note: 09/02/18 16:28 i reviewed pt hx. condition, lab, xray results with him. he declines admission. states to call pts oncologist for transfer. 09/02/18 17:31 spoke with pts oncologist, luna driscoll. i reviewed pt hx, condtion, lab and radiographic findings. he states ok to discharge to home. pt to follow up with him at [facility] tomorrow between 8 and 9am. He will be arranging for outpt paracentesis tomorrow. he will also discuss with pt regarding anticoag tx. no anticoag tx now because of paracentesis tomorrow. Discussed with Dr.: Sanna Bunch (luna dominguez pts oncologist) Counseled pt/family regarding: lab results, diagnosis, need for follow-up, rad results - Departure Time of Disposition: 17:35 Departure Disposition: Home Clinical Impression: Saphenous vein clot, Ascites Condition: Stable Critical Care Time: No Referrals: PEARL RANGEL MD [Primary Care Provider] - Additional Instructions: follow up with dr. david Driscoll tomorrow morning, 09/03/18, at 0800 at [facility] [place]. He will discuss with you paracentesis and anticoagulation treatment.
[2018-09-02 13:26] VITALS: O2SAT 98
[2018-09-02 14:25] LABS: BASOPHIL % 0.3 % (0.0-0.4); Eosinophil % 2.1 % (0.00-5.0); Granulocytes % 71.5 % (36.0-66.0); Hematocrit 33.3 % (35-47); Hemoglobin 10.3 gm/dl (12.0-16.0); Lymphocytes % 13.5 % (24.0-44.0); Mean Cell Volume 85.8 fl (78-100); Mean Corpuscular Hemoglobin 26.5 pg (26-32); Mean Corpuscular Hgb Concent. 30.9 g/dl (32-36); Mean Platelet Volume 9.3 fl (6-9.5); Monocytes % 12.6 % (0.0-12.0); Platelet Count 94 K/mm3 (150-450); Red Blood Count 3.88 M/mm3 (4.1-5.4); Red Cell Distribution Width 17.6 % (11.5-14.0); White Blood Count 3.4 K/mm3 (4.0-10.5)
[2018-09-02 14:49] LABS: ALBUMIN 2.9 g/dL (3.5-5.0); ALKALINE PHOSPHATASE 129 U/L (38-126); AMYLASE < 30 U/L (30-110); ANION GAP 9.3 MEQ/L (5-15); BLOOD UREA NITROGEN 10 mg/dL (7-17); CHLORIDE 104 mmol/L (98-107); Calcium 9.1 mg/dL (8.4-10.2); Carbon Dioxide 29 mmol/L (22-30); Creatinine 1 0.62 mg/dL (0.52-1.04); Glucose 191 mg/dL (74-106); LIPASE 30 U/L (23-300); Potassium 4.2 mmol/L (3.5-5.1); SGOT/AST 26 U/L (14-36); SGPT/ALT 19 U/L (0-35); SODIUM 138 mmol/L (137-145); Total Protein 6.2 g/dL (6.3-8.2)
--- NOTE | 2018-09-02 14:49 | XRAY ---
Indication: Bilateral leg edema. Two-dimensional sonogram and color Doppler imaging of the major venous vessels the left and right leg was performed. Comparison: None Sonogram technically difficult due to patient body habitus. Occluding thrombus seen in the left greater saphenous vein at junction with common femoral vein. Elsewhere no thrombus seen within the remaining examined deep venous vessels of the left right leg including greater saphenous veins. Veins demonstrate normal compressibility. Venous waveforms are normal with and without augmentation. Impression: 1. Left greater saphenous vein occluding thrombus as detailed. 2. Remaining left and right legs negative for DVT.
[2018-09-02 14:53] LABS: Neutrophils 75 % (36.0-66.0); Slide Review 1 YES; Total Cells Counted 100
[2018-09-02 14:54] LABS: ABSOLUTE NEUTROPHILS 2.7 (1.4-6.9); BAND 3 % (0.0-2.0); Eosinophil 4 % (0.00-3.0); Lymphocytes 10 % (24-44); Monocyte 8 % (0.0-12.0)
--- NOTE | 2018-09-02 15:07 | XRAY ---
Indication: Abdomen distention. Left leg swelling. History liver/colon cancer. Multiple contiguous axial images obtained through the abdomen and pelvis without contrast as ordered. Comparison: June 12, 2018. Lung bases demonstrates multiple bilateral calcified/noncalcified nodules similar to CT chest exam August 26, 2018. Tiny bibasilar effusions, less than before. Heart is not enlarged. Stable small hiatal hernia. There is now diffuse anasarca. Again there is massive abdomen/pelvic ascites more than before. Stable ascites filled umbilical hernia. No free air. Noncontrasted stomach and bowel loops appear nonobstructed. Again right hemicolectomy, partial resection of the right lobe of the liver, hysterectomy, and 17.4 cm splenomegaly. Liver demonstrates a 3.8 cm partially calcified lesion near the dome of the diaphragm, previously 2.5 cm. Stable small left renal cyst. Remaining liver, pancreas, spleen, adrenal glands, kidneys, ureters, and bladder appear unremarkable for noncontrast exam. Stable mild aortoiliac calcifications without AAA. Osseous structures intact again with mild degenerative changes throughout the spine, levoscoliosis, and degenerative changes of both hips. Impression: 1. Worsening massive abdomen/pelvic ascites including large ascites filled umbilical hernia. New anasarca. 2. Interval enlarging hepatic calcified lesion possibly metastatic. 3. Stable post surgical changes, splenomegaly, small hiatal hernia, and small left renal cyst. 4. Multiple metastatic bilateral pulmonary nodules further detailed CT chest August 26, 2018. CT DI 23.68
[2018-09-02 17:45] VITALS: BP 118/63; PULSE 83
== END 2018-09-02 17:46 | disposition home or self-care (01) ==
LOC: ED 12:51
DX: I82.819 Embolism and thrombosis of superficial veins of unspecified lower extremity (principal); R18.8 Other ascites; E66.01 Morbid (severe) obesity due to excess calories; K43.9 Ventral hernia without obstruction or gangrene; C18.9 Malignant neoplasm of colon, unspecified; C78.7 Secondary malignant neoplasm of liver and intrahepatic bile duct; C78.00 Secondary malignant neoplasm of unspecified lung; Z79.899 Other long term (current) drug therapy
CPT/HCPCS: 36415; 74176; 80053; 82150; 83690; 85025; 93970; 99284

== ENCOUNTER 2019-08-10 10:25 | Inpatient (IN) | payer MEDICARE ==
[2019-08-10] MEDS ORDERED: TYLENOL EXTRA STRENGTH 500 MG PO PRN (11:14)
[2019-08-10] MEDS ORDERED: DUONEB 0.5-3 MG/3 ml Neb IH PRN (11:15)
[2019-08-10] MEDS ORDERED: NORCO 5/325 MG PO PRN (11:16)
[2019-08-10 11:52] LABS: Absolute Neutrophil Ct (ANC) 2.88 (1.4-6.9); BASOPHIL % 0.3 % (0.0-0.4); Basophil (Absolute #) 0.01 (0-0.4); Eosinophil % 2.9 % (0.00-5.0); Eosinophil (Absolute #) 0.11 (0-0.5); Hematocrit 33.2 % (35-47); Hemoglobin 10.4 gm/dl (12.0-16.0); Lymphocyte (Absolute #) 0.49 (1.0-4.6); Lymphocytes % 12.9 % (24.0-44.0); Mean Cell Volume 82.8 fl (78-100); Mean Corpuscular Hemoglobin 25.9 pg (26-32); Mean Corpuscular Hgb Concent. 31.3 g/dl (32-36); Mean Platelet Volume 10.4 fl (7.5-11.0); Monocyte (Absolute #) 0.32 (0.0-1.3); Monocytes % 8.4 % (0.0-12.0); Neutrophil % 75.5 % (36.0-66.0); Platelet Count 110 K/mm3 (150-450); Red Blood Count 4.01 M/mm3 (4.1-5.4); Red Cell Distribution Width 18.1 % (11.5-14.0); White Blood Count 3.8 K/mm3 (4.0-10.5)
[2019-08-10] MEDS: Sodium Chloride 0.9% 1000 ML 1,000 ML IV SCH (11:54)
[2019-08-10] MEDS: Zithromax 500 MG/ 250 ML NaCl Premix 500 MG/250 ML IVPB IV SCH (11:54)
[2019-08-10] MEDS: ROCEPHIN 1 Gm-D5w 50 ml Bag** 1 G/50 ML IVPB IV SCH (11:55)
[2019-08-10 12:05] LABS: ALBUMIN 2.6 g/dL (3.5-5.0); ALKALINE PHOSPHATASE 166 U/L (38-126); BLOOD UREA NITROGEN 10 mg/dL (7-17); CHLORIDE 101 mmol/L (98-107); Calcium 8.4 mg/dL (8.4-10.2); Carbon Dioxide 28 mmol/L (22-30); Creatinine 1 0.47 mg/dL (0.52-1.04); Glucose 198 mg/dL (74-106); NT PRO BNP 243 pg/mL (0-900); SGOT/AST 51 U/L (14-36); SGPT/ALT 21 U/L (0-35); SODIUM 136 mmol/L (137-145); Total Protein 5.9 g/dL (6.3-8.2)
[2019-08-10 12:06] LABS: ANION GAP 11 MEQ/L (5-15)
[2019-08-10 13:29] LABS: Slide Review 1 YES
[2019-08-10] MEDS ORDERED: xanAX 0.5 MG PO PRN (13:51)
[2019-08-10] MEDS ORDERED: NON-FORMULARY ITEM (Oxycodone Hcl/Acetaminophen [Percocet 7.5-325 Mg Tablet] 1 EACH) PO PRN (13:51)
[2019-08-10] MEDS ORDERED: PERCOCET TABLET 5/325MG PO PRN (14:04)
[2019-08-10] MEDS: XARELTO 10 MG TABLET PO SCH (14:39)
[2019-08-10] MEDS: Colace 100 MG PO SCH (14:39)
[2019-08-10] MEDS: Effexor XR 75 MG PO SCH (14:39)
[2019-08-10] MEDS: Ditropan XL 5 MG PO SCH (14:39)
--- NOTE | 2019-08-10 14:39 | XRAY ---
Indication: Pneumonia. Comparison: August 23, 2018. PA/lateral chest now underinflated with probable bibasilar atelectasis. Remaining heart and lungs normal with stable right Port-A-Cath. Bony thorax intact again with degenerative changes. Stable right upper quadrant abdomen surgical clips.
[2019-08-10] MEDS: PROZAC 10 MG PO SCH (14:40)
[2019-08-10] MEDS: Acidophilus TABLET PO SCH (14:40)
[2019-08-10] MEDS: Cyclogyl 1% EYE DROPS OP SCH (20:03)
[2019-08-10] MEDS: PRED-FORTE 1% OPHTHALMIC OP SCH (20:04)
[2019-08-10] MEDS: HUMALOG SQ PRN (22:40)
[2019-08-11] MEDS: Sodium Chloride 0.9% 1000 ML 1,000 ML IV SCH (06:34)
--- NOTE | 2019-08-11 08:31 | PCM.NOTE ---
Date and Time: 08/11/19825 Subjective Assessment: Pt feels about the same as at admission; weak. Was up "all night" coughing per sister, at bedside. No appetite. - Review of Systems Constitutional: No Fever Respiratory: Cough Objective Exam General Appearance: no apparent distress, alert Neurologic Exam: oriented x 3, cooperative Skin Exam: normal color, warm, dry, No rash Eye Exam: eyes nml inspection Ears, Nose, Throat Exam: moist mucous membranes Neck Exam: normal inspection Respiratory Exam: diminished breath sounds, rhonchi (bibasilar), No crackles/ rales, No wheezing Cardiovascular Exam: regular rate/rhythm, normal heart sounds, No murmur Gastrointestinal/Abdomen Exam: soft, normal bowel sounds, other (midline wound with steri strips, c/d/i) Extremity Exam: normal inspection, No pedal edema, No swelling Back Exam: normal inspection, No rash OBJECTIVE DATA Vital Signs: Vital Signs - 24 hr Temp Pulse Resp BP Pulse Ox 08/11/19 07:56 98.8 F 81 18 124/59 92 L 08/11/19 04:00 98.9 F 85 20 121/61 92 L 08/11/19 00:00 98.1 F 80 20 111/65 94 L 08/10/19 21:35 88 20 94 L 08/10/19 20:00 98.6 F 87 20 126/64 92 L 08/10/19 16:00 98.2 F 88 24 132/66 94 L Pain Assessment - Last Documented Pain Scale Used 0-10 Pain Scale Intake and Output: Intake & Output 08/08/19 08/09/19 08/10/19 08/11/19 11:59 11:59 11:59 11:59 Intake Total 3188 Balance 3188 Weight 88.4 kg Lab Results: Accuchecks Date 08/11/19 Date 08/10/19 Date 08/10/19 Time 08:06 Time 18:03 Time 12:35 Accucheck Value: 127 Accucheck Value: 214 Accucheck Value: 164 Lab Results-Last 24 Hours 08/10/19 08/10/19 08/10/19 Range/Units 11:15 11:15 11:15 WBC 3.8 L (4.0-10.5) K/mm3 RBC 4.01 L (4.1-5.4) M/mm3 Hgb 10.4 L (12.0-16.0) gm/dl Hct 33.2 L (35-47) % MCV 82.8 (78-100) fl MCH 25.9 L (26-32) pg MCHC 31.3 L (32-36) g/dl RDW 18.1 H (11.5-14.0) % Plt Count 110 L (150-450) K/mm3 MPV 10.4 (7.5-11.0) fl Gran % 75.5 H (36.0-66.0) % Eos # (Auto) 0.11 (0-0.5) Absolute Lymphs (auto) 0.49 L (1.0-4.6) Absolute Monos (auto) 0.32 (0.0-1.3) Lymphocytes % 12.9 L (24.0-44.0) % Monocytes % 8.4 (0.0-12.0) % Eosinophils % 2.9 (0.00-5.0) % Basophils % 0.3 (0.0-0.4) % Absolute Granulocytes 2.88 (1.4-6.9) Basophils # 0.01 (0-0.4) Sodium 136 L (137-145) mmol/L Potassium 4.0 (3.5-5.1) mmol/L Chloride 101 (98-107) mmol/L Carbon Dioxide 28 (22-30) mmol/L Anion Gap 11 (5-15) MEQ/L BUN 10 (7-17) mg/dL Creatinine 0.47 L (0.52-1.04) mg/dL Estimated GFR > 60.0 ML/MIN Glucose 198 H (74-106) mg/dL Lactic Acid 1.8 (0.4-2.0) Calcium 8.4 (8.4-10.2) mg/dL Total Bilirubin 0.80 (0.2-1.3) mg/dL AST 51 H (14-36) U/L ALT 21 (0-35) U/L Alkaline Phosphatase 166 H (38-126) U/L NT-Pro-B Natriuret Pep 243 (0-900) pg/mL Serum Total Protein 5.9 L (6.3-8.2) g/dL Albumin 2.6 L (3.5-5.0) g/dL Slides for Path Review YES Radiology Exams: Radiology Procedures Category Date Time Status CHEST 2 VIEWS (PA AND LAT) Routine Exams 08/10/19 11:20 Completed Assessment/Plan (1) Pneumonia Current Visit: No Status: Acute Qualifiers: Pneumonia type: due to unspecified organism Laterality: bilateral Lung location: lower lobe of lung Qualified Code(s): J18.9 - Pneumonia, unspecified organism Assessment & Plan: On rocephin and zithromax day #2 - has been on antibiotics < 24 h, expect some improvement hopefully in the next 1-2 days. Add tessalon perles for cough in an effort to avoid respiratory depression. Code(s): J18.9 - PNEUMONIA, UNSPECIFIED ORGANISM (2) Anemia Current Visit: Yes Status: Acute Qualifiers: Anemia type: unspecified type Qualified Code(s): D64.9 - Anemia, unspecified Code(s): D64.9 - ANEMIA, UNSPECIFIED (3) Depression Current Visit: Yes Status: Chronic Qualifiers: Depression Type: reactive depression Qualified Code(s): F32.9 - Major depressive disorder, single episode, unspecified Code(s): F32.9 - MAJOR DEPRESSIVE DISORDER, SINGLE EPISODE, UNSPECIFIED (4) HTN (hypertension) Current Visit: Yes Status: Chronic Qualifiers: Hypertension type: essential hypertension Qualified Code(s): I10 - Essential (primary) hypertension Code(s): I10 - ESSENTIAL (PRIMARY) HYPERTENSION (5) Hx pulmonary embolism Current Visit: Yes Status: Resolved Code(s): Z86.711 - PERSONAL HISTORY OF PULMONARY EMBOLISM (6) Colon cancer Current Visit: No Status: Chronic Qualifiers: Colon location: unspecified part of colon (7) Diabetes Current Visit: No Status: Chronic Qualifiers: Diabetes mellitus type: type 2 Diabetes mellitus shelter insulin use: without shelter use Diabetes mellitus complication status: with other specified complication Qualified Code(s): E11.69 - Type 2 diabetes mellitus with other specified complication Code(s): E11.9 - TYPE 2 DIABETES MELLITUS WITHOUT COMPLICATIONS
[2019-08-11] MEDS: ROCEPHIN 1 Gm-D5w 50 ml Bag** 1 G/50 ML IVPB IV SCH (08:40)
[2019-08-11] MEDS: Ditropan XL 5 MG PO SCH (08:40)
[2019-08-11] MEDS: Zithromax 500 MG/ 250 ML NaCl Premix 500 MG/250 ML IVPB IV SCH (08:40)
[2019-08-11] MEDS: Colace 100 MG PO SCH (08:40)
[2019-08-11] MEDS: XARELTO 10 MG TABLET PO SCH (08:41)
[2019-08-11] MEDS: Tessalon Perles 100 MG PO PRN ×2 (08:41→16:54)
[2019-08-11] MEDS: Effexor XR 75 MG PO SCH (08:41)
[2019-08-11] MEDS: PROZAC 10 MG PO SCH (08:41)
[2019-08-11] MEDS: PRED-FORTE 1% OPHTHALMIC OP SCH ×2 (08:42→21:32)
[2019-08-11] MEDS: Cyclogyl 1% EYE DROPS OP SCH ×2 (08:42→21:31)
[2019-08-11] MEDS: Acidophilus TABLET PO SCH (09:03)
[2019-08-11] MEDS ORDERED: ACIDOPH PARACASEI B LACTIS PO SCH (10:00)
[2019-08-11] MEDS: HUMALOG SQ PRN (21:32)
[2019-08-12] MEDS: Sodium Chloride 0.9% 1000 ML 1,000 ML IV SCH (02:13)
[2019-08-12] MEDS: Tessalon Perles 100 MG PO PRN ×2 (02:13→22:31)
[2019-08-12] MEDS: ROCEPHIN 1 Gm-D5w 50 ml Bag** 1 G/50 ML IVPB IV SCH (08:42)
[2019-08-12] MEDS: XARELTO 10 MG TABLET PO SCH (08:43)
[2019-08-12] MEDS: Acidophilus TABLET PO SCH (08:43)
[2019-08-12] MEDS: Ditropan XL 5 MG PO SCH (08:43)
[2019-08-12] MEDS: Effexor XR 75 MG PO SCH (08:43)
[2019-08-12] MEDS: Cyclogyl 1% EYE DROPS OP SCH ×2 (08:44→22:06)
[2019-08-12] MEDS: Colace 100 MG PO SCH (08:44)
[2019-08-12] MEDS: PROZAC 10 MG PO SCH (08:45)
[2019-08-12] MEDS: PRED-FORTE 1% OPHTHALMIC OP SCH ×2 (08:45→22:06)
--- NOTE | 2019-08-12 09:26 | PCM.NOTE ---
Date and Time: 08/12/19923 Subjective Assessment: hoarseness is improving, cough remains harsh and productive. no new complaints Objective Exam General Appearance: no apparent distress, obese Neurologic Exam: alert, oriented x 3 Respiratory Exam: rhonchi Cardiovascular Exam: regular rate/rhythm, normal heart sounds Gastrointestinal/Abdomen Exam: soft, No tenderness, No mass OBJECTIVE DATA Vital Signs: Vital Signs - 24 hr Temp Pulse Resp BP Pulse Ox 08/12/19 08:17 93 L 08/12/19 08:00 98.0 F 82 18 107/59 94 L 08/12/19 04:00 98.6 F 85 17 121/60 94 L 08/11/19 23:31 98.0 F 83 16 117/58 94 L 08/11/19 20:35 87 16 97 08/11/19 20:00 98.3 F 83 18 137/63 96 08/11/19 16:00 97.1 F 89 18 121/67 97 08/11/19 11:47 99.0 F 86 18 119/58 93 L Pain Assessment - Last Documented Pain Intensity 0 Pain Scale Used 0-10 Pain Scale Intake and Output: Intake & Output 08/09/19 08/10/19 08/11/19 08/12/19 11:59 11:59 11:59 11:59 Intake Total 3548 3655 Balance 3548 3655 Weight 88.4 kg Lab Results: Accuchecks Date 08/12/19 Date 08/11/19 Date 08/11/19 Time 08:02 Time 16:58 Time 11:57 Accucheck Value: 150 Accucheck Value: 180 Accucheck Value: 167 Accucheck Value: 213 Radiology Exams: Radiology Procedures Category Date Time Status CHEST 2 VIEWS (PA AND LAT) Routine Exams 08/10/19 11:20 Completed Assessment/Plan (1) Pneumonia Current Visit: Yes Status: Acute Assessment & Plan: continue rocephin/zithromax Code(s): J18.9 - PNEUMONIA, UNSPECIFIED ORGANISM (2) Hx pulmonary embolism Current Visit: Yes Status: Resolved Code(s): Z86.711 - PERSONAL HISTORY OF PULMONARY EMBOLISM (3) Ascites Current Visit: No Status: Acute Code(s): R18.8 - OTHER ASCITES (4) Colon cancer Current Visit: No Status: Chronic Qualifiers: Colon location: unspecified part of colon
[2019-08-12] MEDS: Zithromax 500 MG/ 250 ML NaCl Premix 500 MG/250 ML IVPB IV SCH (09:48)
[2019-08-12] MEDS: HUMALOG SQ PRN ×2 (17:06→22:08)
[2019-08-13 04:58] LABS: ALBUMIN 2.4 g/dL (3.5-5.0); ALKALINE PHOSPHATASE 134 U/L (38-126); ANION GAP 7.1 MEQ/L (5-15); BLOOD UREA NITROGEN 10 mg/dL (7-17); CHLORIDE 108 mmol/L (98-107); Calcium 8.4 mg/dL (8.4-10.2); Carbon Dioxide 28 mmol/L (22-30); Creatinine 1 0.59 mg/dL (0.52-1.04); Glucose 142 mg/dL (74-106); SGOT/AST 38 U/L (14-36); SGPT/ALT 16 U/L (0-35); SODIUM 139 mmol/L (137-145); Total Protein 5.6 g/dL (6.3-8.2)
[2019-08-13 05:00] LABS: Absolute Neutrophil Ct (ANC) 1.61 (1.4-6.9); BASOPHIL % 0.4 % (0.0-0.4); Basophil (Absolute #) 0.01 (0-0.4); Eosinophil % 3.5 % (0.00-5.0); Eosinophil (Absolute #) 0.09 (0-0.5); Hematocrit 27.8 % (35-47); Hemoglobin 8.5 gm/dl (12.0-16.0); Lymphocyte (Absolute #) 0.59 (1.0-4.6); Lymphocytes % 22.9 % (24.0-44.0); Mean Cell Volume 83.5 fl (78-100); Mean Corpuscular Hemoglobin 25.5 pg (26-32); Mean Corpuscular Hgb Concent. 30.6 g/dl (32-36); Mean Platelet Volume 9.1 fl (7.5-11.0); Monocyte (Absolute #) 0.28 (0.0-1.3); Monocytes % 10.9 % (0.0-12.0); Neutrophil % 62.3 % (36.0-66.0); Platelet Count 99 K/mm3 (150-450); Red Blood Count 3.33 M/mm3 (4.1-5.4); Red Cell Distribution Width 18.1 % (11.5-14.0); White Blood Count 2.6 K/mm3 (4.0-10.5)
[2019-08-13 06:13] LABS: Slide Review 1 YES
[2019-08-13 07:50] VITALS: BP 118/60; PULSE 80; O2SAT 95
--- NOTE | 2019-08-13 08:03 | PCM.DS ---
Discharge Summary Date of Admission: 08/10/19 10:45 Admitting Physician: PEARL RANGEL Primary Care Provider: PEARL RANGEL Allergies Allergies adhesive tape Adverse Reaction (Verified 09/02/18 13:26) Hospital Summary - Hospital Course Hospital Course: patient was admitted with cough, hoarseness and treated for pneumonia. doing much better at this time, cough is improved, no oxygen requirement and afebrile since admission - Vitals & Intake/Output Vital Signs: Vital Signs Temperature 98.0 F 08/13/19 07:50 Pulse Rate 80 08/13/19 07:50 Respiratory Rate 17 08/13/19 07:50 Blood Pressure 118/60 08/13/19 07:50 O2 Sat by Pulse Oximetry 95 08/13/19 07:50 Intake & Output: Intake & Output 08/10/19 08/11/19 08/12/19 08/13/19 11:59 11:59 11:59 11:59 Intake Total 3548 3655 1799 Balance 3548 3655 1799 Weight 88.4 kg 88.4 kg - Lab Result Diagrams: 08/13/19 04:12 08/13/19 04:12 Lab Results-Last 24 Hrs: Accuchecks Date 08/12/19 Time 12:07 Accucheck Value: 142 Accucheck Value: 170 Accucheck Value: 182 Accucheck Value: 164 Lab Results-Last 24 Hours 08/13/19 08/13/19 Range/Units 04:12 04:12 WBC 2.6 L (4.0-10.5) K/mm3 RBC 3.33 L (4.1-5.4) M/mm3 Hgb 8.5 L (12.0-16.0) gm/dl Hct 27.8 L (35-47) % MCV 83.5 (78-100) fl MCH 25.5 L (26-32) pg MCHC 30.6 L (32-36) g/dl RDW 18.1 H (11.5-14.0) % Plt Count 99 L (150-450) K/mm3 MPV 9.1 (7.5-11.0) fl Gran % 62.3 (36.0-66.0) % Eos # (Auto) 0.09 (0-0.5) Absolute Lymphs (auto) 0.59 L (1.0-4.6) Absolute Monos (auto) 0.28 (0.0-1.3) Lymphocytes % 22.9 L (24.0-44.0) % Monocytes % 10.9 (0.0-12.0) % Eosinophils % 3.5 (0.00-5.0) % Basophils % 0.4 (0.0-0.4) % Absolute Granulocytes 1.61 (1.4-6.9) Basophils # 0.01 (0-0.4) Sodium 139 (137-145) mmol/L Potassium 4.0 (3.5-5.1) mmol/L Chloride 108 H (98-107) mmol/L Carbon Dioxide 28 (22-30) mmol/L Anion Gap 7.1 (5-15) MEQ/L BUN 10 (7-17) mg/dL Creatinine 0.59 (0.52-1.04) mg/dL Estimated GFR > 60.0 ML/MIN Glucose 142 H (74-106) mg/dL Calcium 8.4 (8.4-10.2) mg/dL Total Bilirubin 0.30 (0.2-1.3) mg/dL AST 38 H (14-36) U/L ALT 16 (0-35) U/L Alkaline Phosphatase 134 H (38-126) U/L Serum Total Protein 5.6 L (6.3-8.2) g/dL Albumin 2.4 L (3.5-5.0) g/dL Slides for Path Review YES Micro Results-Entire Visit: Microbiology 08/10/19 11:20 Blood Culture - Preliminary Blood NO GROWTH TO DATE 08/10/19 11:15 Blood Culture - Preliminary Blood NO GROWTH TO DATE Accuchecks Date 08/12/19 Time 12:07 Accucheck Value: 142 Accucheck Value: 170 Accucheck Value: 182 Accucheck Value: 164 - Procedures and Test Procedures and Tests throughout Hospitalization: Therapy Orders & Screens 08/10/19 12:51 Peak Expiratory Flow Rate DAILY Comment: Reason For Exam: Diagnosis: pne 08/10/19 21:35 Respiratory Therapy Assessment DAILY Comment: Diagnosis: pne Discharge Exam General Appearance: no apparent distress, obese Neurologic Exam: alert, oriented x 3 Respiratory Exam: rhonchi Cardiovascular Exam: regular rate/rhythm, normal heart sounds Gastrointestinal/Abdomen Exam: soft, No tenderness Final Diagnosis/Problem List - Final Discharge Diagnosis/Problem (1) Pneumonia Current Visit: Yes Status: Acute Code(s): J18.9 - PNEUMONIA, UNSPECIFIED ORGANISM (2) Hx pulmonary embolism Current Visit: Yes Status: Resolved Code(s): Z86.711 - PERSONAL HISTORY OF PULMONARY EMBOLISM (3) Ascites Current Visit: No Status: Acute Code(s): R18.8 - OTHER ASCITES (4) Colon cancer Current Visit: No Status: Chronic - Discharge Disposition: Home, Self-Care Condition: Good Prescriptions: New Levofloxacin [Levaquin] 500 mg PO DAILY #5 tablet Continue Oxybutynin Chloride Xl 5 mg [Ditropan XL 5 MG] 5 mg PO TID Atorvastatin Calcium [Lipitor 40Mg] 40 mg PO HS L.acidoph,Paracasei, B.lactis [Probiotic] 1 tablet PO DAILY Multivitamin [Multivitamins] 1 each PO DAILY Fluoxetine HCl 10 mg [Prozac 10 mg] 10 mg PO DAILY Insulin NPH Hum/Reg Insulin Hm [Relion Novolin 70-30 Vial] 20 units SQ QAM Insulin NPH/Reg 70/30 [Novolin 70/30] 10 units SQ HS Albuterol Common Canister [Ventolin Common Canister] 2 puff IH Q4- 6HPRN PRN #1 canister PRN Reason: Cough Alprazolam 0.5 mg [xanAX 0.5 MG] 0.5 mg PO DAILY PRN PRN Reason: Anxiety Ascorbic Acid 500 mg [Vitamin C 500 MG] 500 mg PO DAILY Cyclopentolate HCl 1 drop OP BID Docusate Sodium 100 mg [Colace 100 MG] 100 mg PO DAILY Furosemide 20 mg [Lasix 20 mg] 20 mg PO DAILY Hydrocodone Bit/Acetaminophen [Hydrocodon-Acetaminophen 5-325] 1 each PO QID PRN PRN Reason: Pain Ondansetron HCl [Zofran] 8 mg PO Q8H PRN PRN Reason: Nausea Oxycodone HCl/Acetaminophen [Percocet 7.5-325 mg Tablet] 1 each PO Q6H PRN PRN Reason: Pain Potassium Chloride 10 Meq Tab* [Klor Con 10 MEQ] 10 meq PO DAILY Prednisolone Acetate 1 drop OP BID Rivaroxaban 10 mg Tablet [Xarelto 10 mg Tablet] 10 mg PO DAILY Venlafaxine HCl ER 75 mg [Effexor XR 75 MG] 75 mg PO DAILY Vit A/Vit C/Vit E/Zinc/Copper [Preservision Areds Tablet] 1 each PO BID Additional Instructions: FAX DISCHARGE RECORDS TO DR PATRICIA JUÁREZ [phone] Follow up with: PEARL RANGEL MD [Primary Care Provider] - 1 Week
[2019-08-13] MEDS: Acidophilus TABLET PO SCH (08:40)
[2019-08-13] MEDS: Ditropan XL 5 MG PO SCH (08:40)
[2019-08-13] MEDS: Effexor XR 75 MG PO SCH (08:40)
[2019-08-13] MEDS: Colace 100 MG PO SCH (08:40)
[2019-08-13] MEDS: Cyclogyl 1% EYE DROPS OP SCH (08:41)
[2019-08-13] MEDS: PROZAC 10 MG PO SCH (08:41)
[2019-08-13] MEDS: PRED-FORTE 1% OPHTHALMIC OP SCH (08:41)
[2019-08-13] MEDS: XARELTO 10 MG TABLET PO SCH (08:43)
== END 2019-08-13 09:00 | disposition home or self-care (01) | DRG 194 ==
LOC: MED SURG 10:45
PROVIDERS: ADMIT Family Medicine; ATTEND Family Medicine
DX: J18.9 Pneumonia, unspecified organism (principal); R18.8 Other ascites; C18.9 Malignant neoplasm of colon, unspecified; E11.9 Type 2 diabetes mellitus without complications; D64.9 Anemia, unspecified; M21.379 Foot drop, unspecified foot; I10 Essential (primary) hypertension; F32.9 Major depressive disorder, single episode, unspecified; Z86.711 Personal history of pulmonary embolism; Z79.899 Other long term (current) drug therapy
CPT/HCPCS: 36415; 71046; 80053; 82962; 83605; 83880; 85025; 87040; 87070; 94150; 94640; 94760; J0456; J0696; J1642; J1817; A9270-GY